=== PATIENT | female | born 1985 | race Caucasian/White ===

== ENCOUNTER 2016-09-26 22:12 | Emergency (ER) | payer OTHER ==
[~2016-09-26] VITALS: Ht 162.6 cm; Wt 70.0 kg
[~2016-09-26 22:12] MED LIST: ALBU1AER INH; IBUP600 PO; MICR1TAB PO; PERI8.6T PO; PRENCAP6 PO
[2016-09-26 22:15] VITALS: BP 134/82; PULSE 75; RESP 16; TEMP 97.9; O2SAT 100
--- NOTE | 2016-09-26 23:26 | PD ---
HPI Chief Complaint: Related Problem Time Seen by Provider: 23:15 Travel History International Travel<30 days: No Contact w/Intl Traveler<30days: No Traveled to known affect area: No History of Present Illness HPI The patient is a 31 year old female who presents to the [facility] emergency department with a history of , 1 miscarriage currently at approximately 10 weeks gestation with chest pain, shortness of breath, dizziness , a sensation of burning through out her body, and chills that began 2 weeks ago. Her cough is intermittently productive of yellow sputum. Her cough is been present for at least the last month. The patient reports that her pain is in the center of chest. The pain is a sharp pain that is worse with pressing the area. Her proair inhaler has helped. She denies having any lower extremity edema, calf pain, or erythema. 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 She has had nausea with vomiting 2-3 x per day. She has had Diarrhea that began one and 1/2 months ago and occurs approximately 3 x per day. She denies having any blood in the stool, black or tarry stools, or mucus in her stool. No recent antibiotic use. She denies having any known sick contacts, however she reports that she works at [employer]. She denies having any vaginal discharge or vaginal bleeding. She reports having urinary frequency without any urinary urgency or dysuria. The patient denies having any known fevers, neck pain, abdominal pain , or neurologic symptoms. LMP: 07/07/2016. [facility] Past Medical History Narrative Medical The patient's past medical history is significant for asthmatic bronchitis, scoliosis. Asthma: Yes Diminished Hearing: No Respiratory: Yes (ASTHMA) ?: : 3 Para: 2 Past Surgical History Narrative Surgical The patient's past surgical history is significant for scoliosis sx at 16 yoa. Social History Alcohol Use: No Tobacco Use: No Substance Use: No Allergies-Medications (Allergen,Severity, Reaction): Coded Allergies: Benadryl (Verified Allergy, Severe, SWELLIG, 09/26/16) Sudafed (Verified Allergy, Severe, SWELLING, 09/26/16) Reported Meds & Prescriptions Reported Meds & Active Scripts Active Proair Hfa 8.5 GM Inh (Albuterol Sulfate) 90 Mcg/Act Aer 2 Puff INH Q4-6H PRN 108 mcg/actuation Keflex (Cephalexin) 500 Mg Cap 500 Mg PO Q8H Zofran Odt (Ondansetron Odt) 4 Mg Tab 4 Mg SL Q6HR PRN Microgestin 1 mg/20 mcg 1 mg/20 mcg Tab 1 Tab PO DAILY Viry-Colace 8.6-50 mg (Sennosides-Docusate Sodium) 1 Tab Tab 2 Tab PO Q12H PRN Motrin 600 Mg Tab (Ibuprofen) 600 Mg Tab 600 Mg PO Q6H PRN 1 ( Multivitamins) Cap 1 Cap PO DAILY Reported Proair Hfa (Albuterol Sulfate) 8.5 Gm Aero 2 Puff INH Q6 * SHAKE WELL BEFORE USE * Narrative Medication [employer] store brand, [facility] vitamins. Review of Systems Except as stated in HPI: all other systems reviewed are Neg General / Constitutional: No: Fever Eyes: No: Visual changes HENT: Positive: Congestion, No: Headaches Cardiovascular: Positive: Chest Pain or Discomfort Respiratory: Positive: Cough, Shortness of Breath Gastrointestinal: Positive: Nausea, Vomiting, Diarrhea, Changes in Bowel Habits , Indigestion, No: Abdominal Pain, Hematemesis, Hematochezia Genitourinary: Positive: Frequency, No: Urgency, Dysuria, Discharge, Vaginal Bleeding Musculoskeletal: Positive: Myalgias, Pain Skin: No Rash Neurologic: No: Weakness, Focal Abnormalities, Change in Mentation, Slurred Speech, Sensory Disturbance Psychiatric: No: Depression Endocrine: No: Polydipsia Hematologic/Lymphatic: No: Easy Bruising Physical Exam Narrative General: The patient is well-developed well-nourished female in no acute distress. Head and Neck exam: Head is normocephalic atraumatic. Eyes: EOMI, pupils are equal round and reactive to light. Nose: Midline septum with pink mucous membranes Mouth: Dentition unremarkable. Moist mucus membranes. Posterior oropharynx is not erythematous. No tonsillar hypertrophy. Uvula midline. Airway patent. Neck: No palpable lymphadenopathy. No nuchal rigidity. No thyromegaly. Cardiovascular: Regular rate and rhythm without murmurs, gallops, or rubs. No pulse deficits to the extremities on simultaneous auscultation and palpation of her radial artery. The patient has chest wall tenderness on palpation along the left upper sternal border with her second and third rib. There is no erythema or ecchymosis. No step-off or crepitus. No flail segment. Lungs: Clear to auscultation bilaterally. No wheezes, rhonchi, or rales. The patient has a frequent dry sounding cough. Abdomen: Soft, without tenderness to palpation in all 4 quadrants of the abdomen. No guarding, rebound, or rigidity. Normal bowel sounds are audible. No tenderness on palpation of McBurney's point. Negative Navas's sign. Extremities: No clubbing, cyanosis, or edema. 2+ pulses in all 4 extremities. Back: No spinous process tenderness to palpation. Bilateral CVA tenderness reported on palpation. She reports that she does have a problem with chronic back pain related to her scoliosis. Neurologic Exam: Cranial nerves 2-12 were intact on exam. Strength is 5/5 in all 4 extremities. No sensory deficits noted. No dysdiadochokinesis. Good finger to nose and Heel to hector bilaterally. Skin Exam: No rash noted. Intact skin that is warm and dry. Data Data Last Documented VS Vital Signs Date Time Temp Pulse Resp B/P Pulse Ox O2 Delivery O2 Flow Rate FiO2 09/27/16 02:01 98.3 70 18 105/63 98 09/26/16 22:15 Room Air Orders Electrocardiogram (09/26/16 23:22) Complete Blood Count With Diff (09/26/16 23:22) Comprehensive Metabolic Panel (09/26/16 23:22) Creatine Kinase (Cpk) (09/26/16 23:22) Ckmb (Isoenzyme) Profile (09/26/16 23:22) Troponin I (09/26/16 23:22) B-Type Natriuretic Peptide (09/26/16 23:22) Prothrombin Time / Inr (Pt) (09/26/16 23:22) Act Partial Throm Time (Ptt) (09/26/16 23:22) Lipase (09/26/16 23:22) Urinalysis - C+S If Indicated (09/26/16 23:22) Beta Hcg (Quant/Titer) (09/26/16 23:22) Magnesium (Mg) (09/26/16 23:22) Thyroid Stimulating Hormone (09/26/16 23:22) Iv Access Insert/Monitor (09/26/16 23:22) Ecg Monitoring (09/26/16 23:22) Oximetry (09/26/16 23:22) Sodium Chlor 0.9% 1000 Ml Inj (Ns 1000 M (09/26/16 23:45) Ondansetron Inj (Zofran Inj) (09/27/16 00:45) Acetaminophen (Tylenol) (09/27/16 00:45) Ed Poc Ultrasound (09/27/16 00:45) Labs Laboratory Tests Test 09/26/16 09/26/16 23:30 23:35 Urine Color YELLOW Urine Turbidity HAZY Urine pH 7.0 Urine Specific [place] 1.007 Urine Protein NEG mg/dL Urine Glucose (UA) NEG mg/dL Urine Ketones NEG mg/dL Urine Occult Blood NEG Urine Nitrite NEG Urine Bilirubin NEG Urine Urobilinogen LESS THAN 2.0 MG/DL Urine Leukocyte Esterase NEG Urine RBC 1 /hpf Urine WBC 1 /hpf Urine Squamous Epithelial 6 /hpf Cells Urine Bacteria RARE /hpf Microscopic Urinalysis Comment CULT NOT INDICATED White Blood Count 8.3 TH/MM3 Red Blood Count 4.47 MIL/MM3 Hemoglobin 12.4 GM/DL Hematocrit 35.9 % Mean Corpuscular Volume 80.5 FL Mean Corpuscular Hemoglobin 27.9 PG Mean Corpuscular Hemoglobin 34.6 % Concent Red Cell Distribution Width 13.5 % Platelet Count 242 TH/MM3 Mean Platelet Volume 8.5 FL Neutrophils (%) (Auto) 61.5 % Lymphocytes (%) (Auto) 27.2 % Monocytes (%) (Auto) 6.2 % Eosinophils (%) (Auto) 4.5 % Basophils (%) (Auto) 0.6 % Neutrophils # (Auto) 5.1 TH/MM3 Lymphocytes # (Auto) 2.2 TH/MM3 Monocytes # (Auto) 0.5 TH/MM3 Eosinophils # (Auto) 0.4 TH/MM3 Basophils # (Auto) 0.0 TH/MM3 CBC Comment DIFF FINAL Differential Comment Prothrombin Time 10.3 SEC Prothromb Time International 0.9 RATIO Ratio Activated Partial 26.8 SEC Thromboplast Time Sodium Level 136 MEQ/L Potassium Level 3.6 MEQ/L Chloride Level 103 MEQ/L Carbon Dioxide Level 27.3 MEQ/L Anion Gap 6 MEQ/L Blood Urea Nitrogen 8 MG/DL Creatinine 0.53 MG/DL Estimat Glomerular Filtration 136 ML/MIN Rate Random Glucose 91 MG/DL Calcium Level 9.2 MG/DL Magnesium Level 2.0 MG/DL Total Bilirubin 0.2 MG/DL Aspartate Amino Transf 13 U/L (AST/SGOT) Alanine Aminotransferase 19 U/L (ALT/SGPT) Alkaline Phosphatase 39 U/L Total Creatine Kinase 49 U/L Troponin I LESS THAN 0.02 NG/ML B-Type Natriuretic Peptide 15 PG/ML Total Protein 7.2 GM/DL Albumin 3.2 GM/DL Lipase 159 U/L Thyroid Stimulating Hormone 1.280 uIU/ML 3rd Gen Human Chorionic Gonadotropin, 53765 MIU/ML Quant MDM Medical Decision Making Medical Screen Exam Complete: Yes Emergency Medical Condition: Yes Medical Record Reviewed: Yes Differential Diagnosis Viral syndrome, versus pneumonia, versus acute coronary syndrome, versus pulmonary embolism Narrative Course During the course of the patients emergency department visit, the patients history, examination, and differential diagnosis were reviewed with the patient. The patient had IV access obtained and blood work sent for analysis. 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 The patient's breath sounds were equal bilaterally, therefore a chest x-ray was not ordered due to the radiation risk. The patient's risk factors for PE were also reviewed and this also appeared to be unlikely. The patient was initially provided normal saline a 1 L IV fluid bolus, acetaminophen 650 by mouth 1, Zofran 4 mg IV for nausea. The patients laboratory studies were reviewed and remarkable for white count of 8.3, hemoglobin 12.4, platelets 242, neutrophils 61.5, leukocytes 27.2, monocytes 6.2, CMP is remarkable for an AST of 13, alkaline phosphatase 39, CPK 49, troponin I less than 0.02, BNP 15 albumin 3.2, lipase 159, TSH 1.28, monitor data beta hCG 70,015, PT PTT within normal limits, urinalysis unremarkable. The patient is not tachycardic. The patient's O2 saturation is 99-100% on room air. Other than being , the patient has no other risk factors for pulmonary embolism. The patient's symptoms appear to be related to chest wall pain, asthma, and bronchitis. The patient will be discharged home with a perception for Keflex, Zofran for nausea in , and a refill of her pro-air inhaler. She has a follow-up appointment or to schedule with her family practice doctor regarding her scheduled on Tuesday. The patient is resting comfortably and feels better, is alert and in no distress. The patients results and examination findings were discussed with the patient. The repeat examination is unremarkable and benign. The history, exam, diagnostic testing, and current condition do not suggest any significant pathology to warrant further testing, continued ED treatment, admission, or surgical evaluation at this point. The vital signs have been stable. The patient does not have uncontrollable pain, intractable vomiting, or other significant symptoms. The patient's condition is stable and appropriate for discharge. The patient will pursue further outpatient evaluation with a primary care physician or other designated or consulting physician as indicated in the discharge instructions. The patient expressed understanding and was agreeable with this plan. Procedures Procedure Narrative Emergency Department Pelvic ultrasound was performed with patient consent. The curvilinear probe was used in the transverse and sagittal views within the suprapubic region revealing single intrauterine . heart rate was 168. Active fetus noted on examination. Diagnosis Primary Impression: Bronchitis Additional Impressions: Asthma exacerbation Qualified Code: Z3A.10 - 10 weeks gestation of Referrals: Primary Care Physician Patient Instructions: Acute Bronchitis (ED), Asthma (ED), General Instructions , Nausea and Vomiting in (ED) Med/Other Pt SpecificInfo: Prescription(s) given Scripts Albuterol 8.5 GM Inh (Proair Hfa 8.5 GM Inh)90 Mcg/Act Aer2 Puff INH Q4-6H PRN ( SHORTNESS OF BREATH) #1 INHALER Ref 0 108 mcg/actuation Prov:Starla Granado MD 09/27/16 Cephalexin (Keflex)500 Mg Yly418 Mg PO Q8H #30 CAP Ref 0 Prov:Starla Granado MD 09/27/16 Ondansetron Odt (Zofran Odt)4 Mg Tab4 Mg SL Q6HR PRN (Nausea/Vomiting) #7 TAB Ref 0 Prov:Starla Granado MD 09/27/16 Disposition: 01 DISCHARGE HOME Condition: Stable Starla Granado MD Sep 26, 2016 23:26
[2016-09-26] MEDS ORDERED: SODIUM CHLOR 0.9% 1000 ML INJ 1,000 ML IV ONE (23:45)
[2016-09-26 23:51] VITALS: BP 112/70; PULSE 78; RESP 20; O2SAT 99
[2016-09-26 23:55] LABS: AUTOMATED NEUTROPHIL # 5.1 TH/MM3 (1.8-7.7); BASOPHIL % 0.6 % (0.0-2.0); EOSINOPHIL # 0.4 TH/MM3 (0-0.4); EOSINOPHIL % 4.5 % (0.0-4.0); HEMATOCRIT 35.9 % (35.0-46.0); HEMO FLAGS DIFF FINAL; LYMPH % 27.2 % (9.0-44.0); LYMPHOCYTE # 2.2 TH/MM3 (1.0-4.8); MEAN CELL VOLUME 80.5 FL (80.0-100.0); MEAN CORPUSCULAR HEMOGLOBIN 27.9 PG (27.0-34.0); MEAN CORPUSCULAR HGB CONC 34.6 % (32.0-36.0); MONO % 6.2 % (0.0-8.0); NEUT % 61.5 % (16.0-70.0); PLATELET COUNT 242 TH/MM3 (150-450); RED BLOOD COUNT 4.47 MIL/MM3 (4.00-5.30); RED CELL DISTRIBUTION WIDTH 13.5 % (11.6-17.2); WHITE BLOOD COUNT 8.3 TH/MM3 (4.0-11.0)
[2016-09-26 23:55] LABS: BACTERIA, URINE RARE /hpf; BLOOD, URINE NEG (NEG); COMMENT (UR) CULT NOT INDICATED; CULTURE IF INDICATED CULT NOT INDICATED; GLUCOSE,URINE NEG (NEG); KETONE, URINE NEG (NEG); NITRITE,URINE NEG (NEG); SQUAMOUS EPITHELIAL CELL URINE 6 /hpf (0-5); URINE COLOR YELLOW (YELLW/STRAW)
[2016-09-27 00:08] LABS: ANION GAP 6 MEQ/L (5-15); AST (GOT) 13 U/L (15-37); BICARBONATE 27.3 MEQ/L (21.0-32.0); BLOOD UREA NITROGEN 8 MG/DL (7-18); CHLORIDE 103 MEQ/L (98-107); GLOMERULAR FILTRATION RATE 136 ML/MIN (>89); POTASSIUM 3.6 MEQ/L (3.5-5.1); SODIUM (NA) 136 MEQ/L (136-145)
[2016-09-27 00:09] LABS: ALT (GPT) 19 U/L (10-53)
[2016-09-27 00:17] LABS: APTT (PATIENT) 26.8 SEC (24.3-30.1); INTERNATIONAL NORMALIZED RATIO 0.9 RATIO; PROTHROMBIN TIME - PATIENT 10.3 SEC (9.8-11.6)
[2016-09-27 00:26] LABS: ALKALINE PHOSPHATASE 39 U/L (45-117); BETA HCG QUANT 70015 MIU/ML (0-5); TOTAL BILIRUBIN ADULT 0.2 MG/DL (0.2-1.0)
[2016-09-27 00:28] LABS: CREATINE KINASE 49 U/L (26-192)
[2016-09-27] MEDS ORDERED: ONDANSETRON HCL 4 MG/2 ML VIAL IV ONE (00:45)
[2016-09-27] MEDS ORDERED: ACETAMINOPHEN 325 MG TAB PO ONE (00:45)
[2016-09-27] MEDS ORDERED: ALBUAER3 INH (00:47)
[2016-09-27] MEDS ORDERED: ZOFR4TAB3 SL (00:47)
[2016-09-27] MEDS ORDERED: CEPH-460 PO (00:47)
[2016-09-27 02:01] VITALS: BP 105/63; TEMP 98.3
--- NOTE | 2016-09-28 07:46 | EKG ---
Date Performed: 09/27/2016 Time Performed: 00:00:36 PTAGE: 31 years EKG: Sinus rhythm NORMAL ECG NO PREVIOUS TRACING DOCTOR: Jay Hill Interpretating Date/Time 09/28/2016 07:43:44
== END 2016-09-27 02:03 | disposition home or self-care (01) ==
LOC: NEPC 22:12
DX: O99.89 Other specified diseases and conditions complicating pregnancy, childbirth and the puerperium (principal); J40 Bronchitis, not specified as acute or chronic; J45.901 Unspecified asthma with (acute) exacerbation; R07.89 Other chest pain; O21.9 Vomiting of pregnancy, unspecified; R42 Dizziness and giddiness; R19.7 Diarrhea, unspecified; R35.0 Frequency of micturition; R06.02 Shortness of breath; Z87.09 Personal history of other diseases of the respiratory system; Z3A.10 10 weeks gestation of pregnancy
CPT/HCPCS: 80053; 81001; 82550; 83690; 83735; 83880; 84443; 84484; 84702; 85025; 85610; 85730; 93005; 96374; 99284; J2405; J7030

== ENCOUNTER → 2016-11-29 | Outpatient (CLI) | payer OTHER ==
[~2016-11-29] MED LIST changes: -ALBU1AER INH; +ALBUAER3 INH; +AMOX500T2 PO; -IBUP600 PO; -MICR1TAB PO; -PERI8.6T PO; +PREN29TA PO; -PRENCAP6 PO
== END ==
LOC: HPND 09:58
PROVIDERS: ATTEND Family Medicine
DX: O26.842 Uterine size-date discrepancy, second trimester (principal)
CPT/HCPCS: 76805

== ENCOUNTER 2017-02-13 16:47 | Emergency (ER) | payer OTHER ==
[~2017-02-13 16:47] MED LIST changes: -AMOX500T2 PO
--- NOTE | 2017-02-13 17:45 | PD ---
HPI Chief Complaint Lost mucus plug, pelvic pressure Date Seen: Feb 13, 2017 Time Seen: 17:43 (Brigido Bear MD R2) Chief Complaint Pressure Date Seen: Feb 13, 2017 Time Seen: 17:00 (Arthur Avila MD) Travel History International Travel<30 Days: No Contact w/Intl Traveler<30Days: No (Brigido Bear MD R2) International Travel<30 Days: No Contact w/Intl Traveler<30Days: No Known Affected Area: No (Arthur Avila MD) History of Present Illness HPI 31-year-old 5 para 3 who comes for concerns of pelvic pressure. She denies leakage of fluid, bleeding or vaginal discharge. (Arthur Avila MD) Allergies-Medications (Allergen,Severity, Reaction): Coded Allergies: diphenhydramine (Unverified Allergy, Severe, SWELLIG, 02/13/17) pseudoephedrine (Unverified Allergy, Severe, SWELLING, 02/13/17) Home Meds Active Scripts Albuterol 8.5 GM Inh (Proair Hfa 8.5 GM Inh) 90 Mcg/Act Aer, 2 PUFF INH Q4-6H Y for SHORTNESS OF BREATH, #1 INHALER 0 Refills 108 mcg/actuation Prov:Starla Granado MD 09/27/16 Reported Medications Vit-Iron Carbonyl ( Plus Iron 29-1 mg) 1 Tab Tab, 1 TAB PO DAILY for Nutritional Supplement, #30 TAB 0 Refills 11/09/16 Review of Systems Except as stated in HPI: all other systems reviewed are Neg (Arthur Avila MD) Physical Exam Narrative GENERAL: Well-nourished, well-developed patient. SKIN: Warm and dry. HEAD: Normocephalic and atraumatic. EYES: No scleral icterus. No injection or drainage. ENT: No nasal drainage noted. Mucous membranes pink. Airway patent. NECK: Supple, trachea midline. No JVD. CARDIOVASCULAR: Regular rate and rhythm without murmurs, gallops, or rubs. RESPIRATORY: Breath sounds equal bilaterally. No accessory muscle use. BREASTS: Bilateral exam showed no masses , no retractions, no nipple discharge. ABDOMEN/GI: Abdomen soft, non-tender, bowel sounds present, no rebound, no guarding Gravid to [-] weeks size Fundal Height: [-] GENITOURINARY: External Genitalia: intact and normal in appearance BUS glands: [-] Cervix: [-] Dilatation: [-] Effacement: [-] Station: [-] Presentation: [-] Membranes: [intact or ruptured] Uterine Contractions: [-] FHT's: Category: [-] Baseline: [-] Reactive: [-] Variability: [-] Decels: [-] EXTREMITIES: No cyanosis or edema. BACK: Nontender without obvious deformity. No CVA tenderness. NEUROLOGICAL: Awake and alert. Motor and sensory grossly within normal limits. Five out of 5 muscle strength in all muscle groups. Normal speech. (Brigido Bear MD R2) Exam Limitations: Other: Narrative Cervix is closed long with no presenting part in the pelvis (Arthur Avila MD) Data Data Orders Orders Vital Signs (Adult) .ON ADMISSION (02/13/17 17:41) ^ Labor Status (02/13/17 17:41) ^ Non Stress Test (02/13/17 17:41) ^ Hydration (02/13/17 17:41) (Brigido Bear MD R2) Vital Signs Reviewed: Yes (Arthur Avila MD) MDM Medical Record Reviewed: Yes (Brigido Bear MD R2) Medical Record Reviewed: Yes (Arthur Avila MD) Diagnosis Diagnosis: Primary Impression: Round ligament pain Ruled Out: labor Disposition: 01 DISCHARGE HOME Condition: Good Attestation Patient seen and evaluated with resident under direct supervision, agree with assessment and plan. (Arthur Avila MD) Brigido Bear MD R2 Feb 13, 2017 17:45 Arthur Avila MD Feb 13, 2017 18:05
--- NOTE | 2017-02-13 18:36 | PD ---
HPI Chief Complaint Lost mucus plug, pelvic pressure Date Seen: Feb 13, 2017 Time Seen: 17:43 (Brigido Bear MD R2) Travel History International Travel<30 Days: No Contact w/Intl Traveler<30Days: No Known Affected Area: No (Brigido Bear MD R2) History of Present Illness HPI 31 yo at 31/3 weeks gestation presenting with pelvic pain/pressure since 1330 as well as having lost her mucus plug around the same time. Denies vaginal bleeding, leakage of fluid, contractions. Pain is localized to the lower pelvis and lower back and is described as constant pressure which does not fluctuate in severity. Denies dysuria, fevers, chills, chest pain, shortness of breath. She has no history of delivery of premature rupture of membranes. (Brigido Bear MD R2) History Past Medical History Medical History: Denies Significant Hx (Brigido Bear MD R2) Obstetric History Obstetric History All deliveries vaginal at term, no complications (Brigido Bear MD R2) Past Surgical History Narrative Surgical Scoliosis surgery 2001 (Brigido Bear MD R2) Family History Family History: Negative (Brigido Bear MD R2) Social History Alcohol Use: No Tobacco Use: No Substance Abuse: No (Brigido Bear MD R2) Allergies-Medications (Allergen,Severity, Reaction): Coded Allergies: diphenhydramine (Unverified Allergy, Severe, SWELLIG, 02/13/17) pseudoephedrine (Unverified Allergy, Severe, SWELLING, 02/13/17) Home Meds Active Scripts Albuterol 8.5 GM Inh (Proair Hfa 8.5 GM Inh) 90 Mcg/Act Aer, 2 PUFF INH Q4-6H Y for SHORTNESS OF BREATH, #1 INHALER 0 Refills 108 mcg/actuation Prov:Starla Granado MD 09/27/16 Reported Medications Vit-Iron Carbonyl ( Plus Iron 29-1 mg) 1 Tab Tab, 1 TAB PO DAILY for Nutritional Supplement, #30 TAB 0 Refills 11/09/16 Review of Systems Except as stated in HPI: all other systems reviewed are Neg (Brigido Bear MD R2) Physical Exam Narrative GENERAL: Well-nourished, well-developed patient. SKIN: Warm and dry. HEAD: Normocephalic and atraumatic. EYES: No scleral icterus. No injection or drainage. ENT: No nasal drainage noted. Mucous membranes pink. Airway patent. CARDIOVASCULAR: Regular rate and rhythm without murmurs, gallops, or rubs. RESPIRATORY: Breath sounds equal bilaterally. No accessory muscle use. ABDOMEN/GI: Abdomen soft, non-tender, no rebound, no guarding GENITOURINARY: Cervix: posterior Dilation: closed Effacement: thick Presentation: high Contractions: none FHT's: Category: 1 Baseline: 130 Reactive: Y Variability: moderate Decels: N EXTREMITIES: No cyanosis or edema. NEUROLOGICAL: Awake and alert. Motor and sensory grossly within normal limits. Normal speech. (Brigido Bear MD R2) Data Data Vital Signs Reviewed: Yes Orders Orders Vital Signs (Adult) .ON ADMISSION (02/13/17 17:41) ^ Labor Status (02/13/17 17:41) ^ Non Stress Test (02/13/17 17:41) ^ Hydration (02/13/17 17:41) Ed Discharge Order (02/13/17 17:45) (Brigido Bear MD R2) MDM Medical Record Reviewed: Yes Narrative Course / MDM 31-year-old at 31/3 weeks gestation presenting with pelvic pressure #1 IUP Category 1 tracing, reassuring #2 pelvic pressure heart tones reassuring, no signs or symptoms of UTI, labor ruled out by cervical exam and monitoring - Likely etiology round ligament pain - Return to ER if other symptoms develop or if pain worsens - Construction Engineer on early labor signs - Routine f/u with Dr. Kayce Avila (Brigido Bear MD R2) Attending Attestation Patient seen and evaluated with resident under direct supervision, agree with assessment and plan. (Arthur Avila MD) Diagnosis Diagnosis: Primary Impression: Round ligament pain Ruled Out: labor Disposition: 01 DISCHARGE HOME Condition: Good Patient Instructions: General Instructions, Labor (ED) Departure Forms: Tests/Procedures Brigido Bear MD R2 Feb 13, 2017 18:36 Arthur Avila MD Feb 13, 2017 19:39
== END 2017-02-13 18:04 | disposition home or self-care (01) ==
LOC: HOBED 16:47
DX: O26.893 Other specified pregnancy related conditions, third trimester (principal); R10.2 Pelvic and perineal pain; Z3A.31 31 weeks gestation of pregnancy
CPT/HCPCS: 99283

== ENCOUNTER 2017-04-05 11:58 | Emergency (ER) | payer OTHER ==
[~2017-04-05] VITALS: Ht 170.2 cm; Wt 71.2 kg
[~2017-04-05 11:58] MED LIST changes: +ONDA4TAB7 SL; +RANI150T PO
--- NOTE | 2017-04-05 12:48 | PD ---
HPI Travel History International Travel<30 Days: No Contact w/Intl Traveler<30Days: No Known Affected Area: No (Michelle Thomas MD R2) History of Present Illness HPI Patient is a 31 year old at 38 and 5/7 weeks gestation, OB care with Dr. Devries, RODRIGUEZ 04/14/2017, who presents to the OB ED with possible leakage of fluid at 9pm yesterday. No gush of fluid. No dysuria or urinary frequency. She denies vaginal bleeding. + [place] contractions. She feels baby moving regularly. She denies PANIAGUA/N/V/D/fever/sick contacts/SOB/calf pain/dizziness/ seeing spots. Last sexual activity 6-7 days ago. GBS positive. Rh negative, received Rhogam this . (Michelle Thomas MD R2) History Past Medical History Narrative Medical Asthma - mild intermittent based on reported symptoms, last albuterol use 2 weeks ago (Michelle Thomas MD R2) Obstetric History Obstetric History One miscarriage at 7 weeks Three normal vaginal deliveries (Michelle Thomas MD R2) Past Surgical History Narrative Surgical Scoliosis surgery (rods) (Michelle Thomas MD R2) Family History Narrative Family History None reported (Michelle Thomas MD R2) Social History Alcohol Use: No Tobacco Use: No Substance Abuse: No (Michelle Thomas MD R2) Allergies-Medications (Allergen,Severity, Reaction): Coded Allergies: diphenhydramine (Unverified Allergy, Severe, SWELLIG, 03/29/17) pseudoephedrine (Unverified Allergy, Severe, SWELLING, 03/29/17) Home Meds Active Scripts Ranitidine (Ranitidine) 150 Mg Tab, 150 MG PO BID for Heartburn Management, #60 TAB 1 Refill Prov:Rupal Devries MD, R3 03/01/17 Albuterol 8.5 GM Inh (Proair Hfa 8.5 GM Inh) 90 Mcg/Act Aer, 2 PUFF INH Q4-6H Y for SHORTNESS OF BREATH, #1 INHALER 0 Refills 108 mcg/actuation Prov:Rupal Devries MD, R3 03/01/17 Reported Medications Vit-Iron Carbonyl ( Plus Iron 29-1 mg) 1 Tab Tab, 1 TAB PO DAILY for Nutritional Supplement, #30 TAB 0 Refills 11/09/16 Discontinued Scripts Ondansetron Odt (Ondansetron Odt) 4 Mg Tab, 4 MG SL Q8HR Y for Nausea/Vomiting, #20 TAB 0 Refills Prov:Rupal Devries MD, R3 03/15/17 Amoxicillin (Amoxicillin) 500 Mg Cap, 500 MG PO BID for Infection, #14 CAP 0 Refills Prov:Rupal Devries MD, R3 03/22/17 Review of Systems Except as stated in HPI: all other systems reviewed are Neg (Michelle Thomas MD R2) Physical Exam Narrative GENERAL: Well-nourished, well-developed female in no apparent distress. SKIN: Warm and dry. No rashes or ecchymoses. NECK: Supple, trachea midline. No JVD. ABDOMEN/GI: Abdomen gravid, nontender to palpation. GENITOURINARY: External Genitalia: intact and normal in appearance Cervix: 0/0/-2 Membranes: intact Uterine Contractions: intermittent FHT's: Category: 1 Baseline: 120s Reactive: 150s Variability: mod Decels: absent EXTREMITIES: No cyanosis or edema. (Michelle Thomas MD R2) Data Data Vital Signs Reviewed: Yes (wnl) Group B Strep: Positive (per labs outpt) (Michelle Thomas MD R2) MDM Medical Record Reviewed: Yes Narrative Course / MDM 31 year old at 38 and 5/7 weeks gestation, OB care with Dr. Devries who presents with possible rupture of membranes -Amnisure negative -Cervix closed -CTX intermittent -Cat 1 tracing Discharge home with labor precautions. Advised to keep next appointment with Dr. Devries. Cautioned to return for any signs of labor urgently give multiparous status. Patient expressed understanding of plan of care. Dr. Devries notified. Dr. Avila OB Hospitalist access control officer evaluated patient and agrees with plan of care. (Michelle Thomas MD R2) Attending Attestation Patient seen and evaluated with resident under direct supervision, agree with assessment and plan. (Arthur Avila MD) Diagnosis Diagnosis: Primary Impression: Round ligament pain Additional Impression: with 38 completed weeks gestation Disposition: 01 DISCHARGE HOME Condition: Stable Patient Instructions: Abdominal Pain in (ED), Having Your Baby: The Labor Process (GEN) Michelle Thomas MD R2 Apr 05, 2017 12:48 Arthur Avila MD Apr 05, 2017 17:11
== END 2017-04-05 13:23 | disposition home or self-care (01) ==
LOC: HOBED 11:58
DX: O26.893 Other specified pregnancy related conditions, third trimester (principal); R10.2 Pelvic and perineal pain; Z3A.38 38 weeks gestation of pregnancy
CPT/HCPCS: 59025; 84112

== ENCOUNTER 2017-04-17 02:49 | Emergency (ER) | payer OTHER ==
[~2017-04-17 02:49] MED LIST changes: -ONDA4TAB7 SL
--- NOTE | 2017-04-17 03:32 | PD ---
HPI Chief Complaint Abdominal pain Date Seen: Apr 17, 2017 Travel History International Travel<30 Days: No Contact w/Intl Traveler<30Days: No Known Affected Area: No History of Present Illness HPI Patient is a 31 year old at 40 and 3/7 weeks gestation, OB care with Dr. Devries, RODRIGUEZ 04/14/2017, who presents to the OB ED with sharp abdominal pain in her pelvis with movement. No gush of fluid. No dysuria or urinary frequency. She denies vaginal bleeding. Occasional contraction q30 mins. She feels baby moving regularly. She also denies nausea, vomiting, fever, chills, abnormal vaginal discharge, spots in her vision, pedal edema, RUQ pain, but has had headache and back pain. GBS positive. Rh negative, received Rhogam this Weeks Gestation: 40 Para: 3 : 5 History Past Medical History Narrative Medical Asthma - mild intermittent based on reported symptoms, albuterol prn Obstetric History Obstetric History One miscarriage at 7 weeks Three normal vaginal deliveries Past Surgical History Narrative Surgical Scoliosis surgery (rods) Family History Narrative Family History None reported Social History Narrative Social History Alcohol Use: No Tobacco Use: No Substance Abuse: No Allergies-Medications (Allergen,Severity, Reaction): Coded Allergies: diphenhydramine (Unverified Allergy, Severe, SWELLIG, 03/29/17) pseudoephedrine (Unverified Allergy, Severe, SWELLING, 03/29/17) Home Meds Active Scripts Ranitidine (Ranitidine) 150 Mg Tab, 150 MG PO BID for Heartburn Management, #60 TAB 1 Refill Prov:Rupal Devries MD, R3 03/01/17 Albuterol 8.5 GM Inh (Proair Hfa 8.5 GM Inh) 90 Mcg/Act Aer, 2 PUFF INH Q4-6H Y for SHORTNESS OF BREATH, #1 INHALER 0 Refills 108 mcg/actuation Prov:Rupal Devries MD, R3 03/01/17 Reported Medications Vit-Iron Carbonyl ( Plus Iron 29-1 mg) 1 Tab Tab, 1 TAB PO DAILY for Nutritional Supplement, #30 TAB 0 Refills 11/09/16 Review of Systems Except as stated in HPI: all other systems reviewed are Neg Physical Exam Narrative GENERAL: Well-nourished, well-developed female in no apparent distress. SKIN: Warm and dry. No rashes or ecchymoses. NECK: Supple, trachea midline. No JVD. ABDOMEN/GI: Abdomen gravid, nontender to palpation. GENITOURINARY: External Genitalia: intact and normal in appearance Cervix: 2/0/-3 Membranes: intact Uterine Contractions: rare FHT's: Category: I-Ii Baseline: 150s Reactive: multiple accels Variability: mod Decels: 2 variables EXTREMITIES: No cyanosis or edema Data Data Vital Signs Reviewed: Yes Group B Strep: Positive MDM Medical Record Reviewed: Yes Interpretation(s) 31 year old at 40 and 3/7 weeks gestation, OB care with Dr. Devries who presents with false labor -Cervix closed -CTX intermittent -Cat I-II tracing - 2 variable decels associated with contractions Plan Discharge home with labor precautions. Advised to keep next appointment at the [facility] clinic on Tuesday Cautioned to return for any signs of labor urgently given multiparous status She may need a BPP within the week Further management per Dr. Devries Patient expressed understanding of plan of care Discussed with Dr. Plaza who agrees to the plan of care Diagnosis Diagnosis: Primary Impression: False labor after 37 weeks of gestation without delivery Disposition: 01 DISCHARGE HOME Condition: Stable Patient Instructions: Abdominal Pain in (ED), Early Labor Signs (ED) EkoKeya MD R2 Apr 17, 2017 03:32
== END 2017-04-17 04:49 | disposition home or self-care (01) ==
LOC: HOBED 02:49
DX: O47.1 False labor at or after 37 completed weeks of gestation (principal); J45.909 Unspecified asthma, uncomplicated; Z3A.40 40 weeks gestation of pregnancy; Z79.899 Other long term (current) drug therapy; Z88.8 Allergy status to other drugs, medicaments and biological substances
CPT/HCPCS: 59025

== ENCOUNTER 2017-04-18 21:41 | Inpatient (IN) | payer OTHER ==
[~2017-04-18] VITALS: Ht 152.4 cm; Wt 73.0 kg
[2017-04-18] MEDS ORDERED: LACTATED RINGER'S 1000 ML INJ 1,000 ML IV SCH (22:21)
[2017-04-18] MEDS ORDERED: LACTATED RINGER'S 1000 ML INJ 1,000 ML IV PRN (22:21)
[2017-04-18] MEDS ORDERED: LIDOCAINE HCL 1% 50 ML VIAL INFIL PRN (22:30)
[2017-04-18] MEDS ORDERED: OXYTOCIN 30 UNITS-500ML PREMIX 500 ML IV ONE (22:30)
[2017-04-18] MEDS ORDERED: LIDOCAINE HCL 1% 50 ML VIAL I-DERMAL PRN (22:30)
[2017-04-18] MEDS ORDERED: SODIUM CHLORID 0.9% 500 ML INJ 500 ML IV PRN (22:30)
[2017-04-18] MEDS ORDERED: CITRIC ACID-SODIUM CITRATE LIQ 30 ML UDC PO SCH (22:30)
[2017-04-18] MEDS ORDERED: MINERAL OIL 10 ML VIAL TOPICAL PRN (22:30)
[2017-04-18] MEDS ORDERED: SODIUM CHLOR 0.9% 1000 ML INJ 1,000 ML IV PRN (22:41)
[2017-04-18] MEDS ORDERED: PENICILLIN G POTASSIUM INJ 5,000,000 UNITS in SODIUM CHLORIDE 0.9% INJ 100 ML IV ONE (23:00)
[2017-04-18] MEDS ORDERED: OXYTOCIN 30 UNITS-500ML PREMIX 500 ML IV PRN (23:00)
--- NOTE | 2017-04-18 23:06 | HHI.HP ---
HPI Chief Complaint SROM Date Seen: Apr 18, 2017 Time Seen: 22:30 Travel History International Travel<30 Days: No Contact w/Intl Traveler<30Days: No Known Affected Area: No History of Present Illness HPI Ms. Peng is a 31-year-old at 40 weeks and 4 days presenting to the OB ED for SROM. Patient states that at approximately 9:15 p.m. on the day of admission she had a gush of clear fluid. States that she has continued to leak clear fluid since that time. She reports contractions roughly every 10 minutes, continues to feel baby move with no changes. She denies any complications during this , but is GBS positive. She reports 3 prior vaginal deliveries at term and one miscarriage. Of note, she reports that she had the flu in mid March. This was not confirmed a test but she had a known sick contact who was diagnosed with the flu. History Past Medical History Narrative Medical History of asthma, uses pro-air sporadically Scoliosis Obstetric History Obstetric History , 3 vaginal deliveries and 1 miscarriage No complications during this Past Surgical History Narrative Surgical Spinal surgery with 2 rods placed for scoliosis Family History Narrative Family History HTN, [place] in father Social History Narrative Social History Lives at home with , 3 kids and a dog. Denies alcohol, tobacco, drug use. Also denies smoke exposure Allergies-Medications (Allergen,Severity, Reaction): Coded Allergies: diphenhydramine (Unverified Allergy, Severe, SWELLIG, 03/29/17) pseudoephedrine (Unverified Allergy, Severe, SWELLING, 03/29/17) Home Meds Active Scripts Ranitidine (Ranitidine) 150 Mg Tab, 150 MG PO BID for Heartburn Management, #60 TAB 1 Refill Prov:Rupal Devries MD, R3 03/01/17 Albuterol 8.5 GM Inh (Proair Hfa 8.5 GM Inh) 90 Mcg/Act Aer, 2 PUFF INH Q4-6H Y for SHORTNESS OF BREATH, #1 INHALER 0 Refills 108 mcg/actuation Prov:Rupal Devries MD, R3 03/01/17 Reported Medications Vit-Iron Carbonyl ( Plus Iron 29-1 mg) 1 Tab Tab, 1 TAB PO DAILY for Nutritional Supplement, #30 TAB 0 Refills 11/09/16 Review of Systems Except as stated in HPI: all other systems reviewed are Neg Physical Exam Narrative GENERAL: Well-nourished, well-developed patient. SKIN: Warm and dry. HEAD: Normocephalic and atraumatic. EYES: No scleral icterus. No injection or drainage. ENT: No nasal drainage noted. Mucous membranes pink. Airway patent. NECK: Supple, trachea midline. No JVD. CARDIOVASCULAR: Regular rate and rhythm without murmurs, gallops, or rubs. RESPIRATORY: Breath sounds equal bilaterally. No accessory muscle use. ABDOMEN/GI: Abdomen soft, non-tender, bowel sounds present, no rebound, no guarding Gravid to 40 weeks size GENITOURINARY: External Genitalia: intact and normal in appearance Cervix: Posterior Dilatation: 3 Effacement: 70 Station: -2 Presentation: Vertex Membranes: Ruptured Uterine Contractions: Every 7 minutes FHT's: Category: 1 Baseline: 130 Reactive: Yes Variability: Moderate Decels: No recurring decelerations EXTREMITIES: No cyanosis or edema. BACK: Nontender without obvious deformity. No CVA tenderness. NEUROLOGICAL: Awake and alert. Motor and sensory grossly within normal limits. Five out of 5 muscle strength in all muscle groups. Normal speech. Caprini VTE Risk Assessment Caprini VTE Risk Assessment: No/Low Risk (score <= 1) Data Data Orders Orders Admit To Inpatient (04/18/17 ) Vital Signs (Adult) .Per protocol (04/18/17 22:21) Heart (04/18/17 22:21) Amnioinfusion (04/18/17 22:21) Urinary Catheter Management .ONCE (04/18/17 22:21) Diet Liquid (04/19/17 Breakfast) Lactated Ringer's 1000 Ml Inj (Lr 1000 M (04/18/17 22:21) Lactated Ringer's 1000 Ml Inj (Lr 1000 M (04/18/17 22:21) Sodium Chlorid 0.9% 500 Ml Inj (Ns 500 M (04/18/17 22:30) Sodium Chlor 0.9% 1000 Ml Inj (Ns 1000 M (04/18/17 22:41) Lidocaine 1% Inj (50 Ml) (Xylocaine 1% I (04/18/17 22:30) Citric Acid-Sodium Citrate Liq (Bicitra (04/18/17 22:30) Fentanyl Inj (Fentanyl Inj) (04/18/17 22:30) Fentanyl Inj (Fentanyl Inj) (04/18/17 22:30) Penicillin G Potassium Inj (Pfizerpen-G (04/18/17 23:00) Penicillin G Potassium Inj (Pfizerpen-G (04/19/17 03:00) Complete Blood Count With Diff (04/18/17 22:21) Hold Clot (04/18/17 22:21) Abo/Rh Blood Type (04/18/17 22:21) Urinalysis - C+S If Indicated (04/18/17 22:21) Drug Screen, Random Urine (04/18/17 22:21) Type And Screen (04/18/17 22:21) Resp Oxygen Non Rebreathe Mask (04/18/17 ) ^ Epidural / Intrathecal Infus (04/18/17 22:21) Oxytocin 30 Units-500ml Premix (Pitocin (04/18/17 22:30) Lidocaine 1% Inj (50 Ml) (Xylocaine 1% I (04/18/17 22:30) Light Mineral Oil (Muri-Lube Oil) (04/18/17 22:30) Ob (2e) Additional Admit Info (04/18/17 22:24) Assessment/Plan Assessment and Plan 31-year-old at 40 weeks and 4 days presenting to the ED with SROM. She is a patient of Dr. Devries's. Admitting with anticipation of vaginal delivery. SROM with anticipated delivery - Clear gush of fluid reported at 2115 on 04/18/17 - GBS positive - Continuous heart tracing - Routine labor labs pending - Pitocin for labor augmentation - First dose of penicillin at 2300 Zackery Araujo MD R1 Apr 18, 2017 23:06
--- NOTE | 2017-04-18 23:12 | PD.LABORPN ---
Subjective Subjective Patient is resting in bed comfortably. Objective Objective Pelvic Exam: Cervix: midposition Dilatation: 3 Effacement: 70 Station: -2 Presentation: vertex Membranes: SROM Uterine Contractions: q7-8min FHT's: Category: I Baseline: 131 Reactive: + Variability: moderate Decels: none Assessment/Plan Assessment and Plan 31 year old at 40-4/7 weeks gestation. 1. IUP- Category I tracing, reassuring. 2. Labor- SROM, will augment with Pitocin 30. 3. Scoliosis- s/p reconstructive surgery. 4. Asthma- Stable. Albuterol inh PRN shortness of breath. 5. Rh negative- s/p Rhogam on 02/17/17. 6. GBS positive- penicillin ppx 7. Anticipate vaginal delivery. Rupal Daniel Dr., MD, R3 Apr 18, 2017 23:12
[2017-04-18 23:14] LABS: BACTERIA, URINE OCC /hpf; BILIRUBIN, URINE NEG (NEG); BLOOD, URINE MOD (NEG); GLUCOSE,URINE NEG (NEG); KETONE, URINE NEG (NEG); MUCUS URINE FEW /lpf (OCC); NITRITE,URINE NEG (NEG); PH, URINE 6.5 (5.0-8.5); SQUAMOUS EPITHELIAL CELL URINE 11 /hpf (0-5); URINE COLOR YELLOW (YELLW/STRAW); URINE LEUKOCYTE ESTERASE MOD (NEG)
[2017-04-18 23:22] LABS: BASOPHIL % 0.5 % (0.0-2.0); EOSINOPHIL # 0.1 TH/MM3 (0-0.4); EOSINOPHIL % 1.5 % (0.0-4.0); HEMATOCRIT 33.2 % (35.0-46.0); HEMOGLOBIN 11.5 GM/DL (11.6-15.3); LYMPH % 23.8 % (9.0-44.0); LYMPHOCYTE # 2.1 TH/MM3 (1.0-4.8); MEAN CELL VOLUME 76.4 FL (80.0-100.0); MEAN CORPUSCULAR HEMOGLOBIN 26.3 PG (27.0-34.0); MEAN CORPUSCULAR HGB CONC 34.5 % (32.0-36.0); MEAN PLATELET VOLUME 9.6 FL (7.0-11.0); MONO % 6.8 % (0.0-8.0); MONOCYTE # 0.6 TH/MM3 (0-0.9); NEUT % 67.4 % (16.0-70.0); PLATELET COUNT 225 TH/MM3 (150-450); RED BLOOD COUNT 4.35 MIL/MM3 (4.00-5.30); RED CELL DISTRIBUTION WIDTH 15.2 % (11.6-17.2); WHITE BLOOD COUNT 8.8 TH/MM3 (4.0-11.0)
[2017-04-18 23:58] VITALS: TEMP 97.7
[2017-04-18 23:59] VITALS: BP 107/58; PULSE 63
[2017-04-19] VITALS (52 sets, daily range): BP systolic 96–143; BP diastolic 34–89; PULSE 56–85; RESP 16–18; TEMP 97.4–98.8; O2SAT 100
[2017-04-19] MEDS ORDERED: ePHEDrine/NS 25 MG/5 ML SYRINGE ONE (01:08)
[2017-04-19] MEDS ORDERED: fentaNYL 2MCG-BUPIV 0.125% INJ 100 ML ONE (01:08)
--- NOTE | 2017-04-19 01:56 | PD.LABORPN ---
Subjective Subjective Patient is resting comfortably in bed with epidural in place. Objective Vital Signs Vital Signs Date Time Temp Pulse Resp B/P (MAP) Pulse Ox O2 Delivery O2 Flow Rate FiO2 04/19/17 01:30 70 04/19/17 01:27 68 120/70 (87) 04/19/17 01:25 71 04/19/17 01:24 72 123/69 (87) 04/19/17 01:21 73 126/70 (88) 04/19/17 01:20 69 04/19/17 01:18 70 130/70 (90) 04/19/17 01:16 65 143/84 (103) 04/19/17 01:16 65 143/84 (103) 04/19/17 01:15 72 04/19/17 01:14 18 04/19/17 01:12 84 139/82 (101) 04/19/17 01:11 67 141/79 (99) 04/19/17 01:10 85 04/19/17 01:05 76 04/19/17 00:00 18 04/18/17 23:59 63 107/58 (74) 04/18/17 23:58 97.7 Objective Pelvic Exam: Cervix: midposition Dilatation: 6 Effacement: 100 Station: 0 Presentation: vertex Membranes: SROM, light mec Uterine Contractions: q2-3min FHT's: Category: II Baseline: 115 Reactive: + Variability: moderate Decels: variable decelerations Assessment/Plan Assessment and Plan 31 year old at 40-4/7 weeks gestation. 1. IUP- Category II tracing- position change, IV fluids, O2 administered and Pitocin discontinued with improvement in heart tracing, continue to monitor closely. 2. Labor- SROM, expectant management. 3. Scoliosis- s/p reconstructive surgery. 4. Asthma- Stable. Albuterol neb PRN shortness of breath. 5. Rh negative- s/p Rhogam on 02/17/17. 6. GBS positive- penicillin ppx 7. Anticipate vaginal delivery. dw Rupal Moncada MD, R3 Apr 19, 2017 01:56
[2017-04-19] MEDS ORDERED: NO SYSTEM NARCOTICS PRN (02:00)
[2017-04-19] MEDS ORDERED: DO NOT ADMINISTER ANTICOAGULANTS PRN (02:00)
[2017-04-19] MEDS ORDERED: RESP: ALBUTEROL 2.5 MG/3 ML NEB (PRN) NEB (02:00)
[2017-04-19] MEDS ORDERED: fentaNYL 2MCG-BUPIV 0.125% 100 ML EPIDURAL SCH (02:00)
[2017-04-19] MEDS ORDERED: LIDOCAINE HCL 1% 20 ML VIAL ONE (02:04)
[2017-04-19] MEDS ORDERED: PENICILLIN G POTASSIUM INJ 2,500,000 UNITS in SODIUM CHLORIDE 0.9% INJ 100 ML IV SCH (03:00)
--- NOTE | 2017-04-19 03:12 | PD.OB.DELI ---
Weeks gestation: 40 Gest age assessed date: Apr 19, 2017 Pt started active labor?: Yes Medical induction of labor?: No Artificial rupture of membrane: No Anesthesia: Epidural Episiotomy: None Vaginal Delivery: Normal Presentation: Occiput anterior Nuchal Cord: None Delayed cord clamping (45 sec): Yes (60 sec) Infant: Female Delivery date: Apr 19, 2017 Delivery time: 02:57 One Minute : 8 Five Minute : 8 Weight: delayed for skin to skin Placenta: Spontaneous delivery, Intact, 3 vessel cord Laceration: No lacerations Estimated blood loss: 150cc Additional Information Supervised by Dr. Plaza. Rupal Devries MD, R3 Apr 19, 2017 03:12
[2017-04-19] MEDS ORDERED: oxyCODONE/ACETAMINOPHEN 5 MG/325 MG TAB PO PRN (03:15)
[2017-04-19] MEDS ORDERED: SODIUM CHLORIDE 0.9% FLUSH 10 ML FLUSH IV FLUSH PRN (03:15)
[2017-04-19] MEDS ORDERED: ONDANSETRON ODT 4 MG TAB PO PRN (03:15)
[2017-04-19] MEDS ORDERED: OXYTOCIN 30 UNITS-500ML PREMIX 500 ML IV SCH (03:15)
[2017-04-19] MEDS ORDERED: DOCUSATE SODIUM 50 MG/SENNA 8.6 MG TAB PO PRN (03:15)
[2017-04-19] MEDS ORDERED: WITCH HAZEL 50%/GLYCERIN 12.5% 40 PAD JAR TOPICAL PRN (03:15)
[2017-04-19] MEDS ORDERED: ZOLPIDEM TARTRATE 5 MG TAB PO PRN (03:15)
[2017-04-19] MEDS ORDERED: ALUMINUM/MAGNESIUM/SIMETH 30 ML CUP PO PRN (03:15)
[2017-04-19] MEDS ORDERED: BENZOCAINE 20% TOPICAL SPRAY 60 ML CAN TOPICAL PRN (03:15)
[2017-04-19] MEDS ORDERED: ACETAMINOPHEN 325 MG TAB PO PRN (03:15)
[2017-04-19] MEDS: IBUPROFEN 800 MG TAB PO PRN ×3 (05:22→23:25)
--- NOTE | 2017-04-19 07:58 | HHI.OB ---
Subjective Remarks PPD day # 0/. No acute issues overnight, vitals are stable, patient remains afebrile.Decreasing lochia and pain. Patient is ambulating without difficulty and voiding independently. She is feeding the baby via breast. She denies any nausea or vomiting and has a good appetite. Positive flatus/bowel movement. She denies any calf pain, chest pain, or shortness of breath. She is bonding well with infant. Objective Vitals/I&O Vital Signs Date Time Temp Pulse Resp B/P (MAP) Pulse Ox O2 Delivery O2 Flow Rate FiO2 04/19/17 05:50 66 18 103/68 (80) 100 04/19/17 05:50 98.0 04/19/17 04:35 18 04/19/17 04:31 59 105/63 (77) 04/19/17 04:16 56 115/63 (80) 04/19/17 04:00 59 123/56 (78) 04/19/17 03:50 18 04/19/17 03:45 62 113/45 (67) 04/19/17 03:30 63 120/75 (90) 04/19/17 03:20 97.6 04/19/17 03:20 18 04/19/17 03:15 68 119/70 (86) 04/19/17 03:09 64 111/72 (85) 04/19/17 03:05 18 04/19/17 03:00 70 124/89 (101) 04/19/17 02:55 73 04/19/17 02:50 70 04/19/17 02:45 69 04/19/17 02:45 74 113/65 (81) 04/19/17 02:40 67 04/19/17 02:35 71 04/19/17 02:30 72 120/72 (88) 04/19/17 02:30 67 04/19/17 02:25 71 04/19/17 02:20 61 04/19/17 02:15 18 04/19/17 02:15 68 120/71 (87) 04/19/17 02:15 97.4 04/19/17 02:15 62 04/19/17 02:10 81 04/19/17 02:05 74 04/19/17 02:00 69 111/50 (70) 04/19/17 02:00 64 04/19/17 01:55 67 04/19/17 01:50 60 115/53 (73) 04/19/17 01:50 61 04/19/17 01:48 58 104/46 (65) 04/19/17 01:46 78 96/34 (54) 04/19/17 01:45 62 04/19/17 01:42 58 116/60 (78) 04/19/17 01:40 63 04/19/17 01:39 60 111/66 (81) 04/19/17 01:35 65 04/19/17 01:33 60 113/65 (81) 04/19/17 01:30 70 04/19/17 01:27 68 120/70 (87) 04/19/17 01:25 71 04/19/17 01:24 72 123/69 (87) 04/19/17 01:21 73 126/70 (88) 04/19/17 01:20 69 04/19/17 01:18 70 130/70 (90) 04/19/17 01:16 65 143/84 (103) 04/19/17 01:16 65 143/84 (103) 04/19/17 01:15 72 04/19/17 01:14 18 04/19/17 01:12 84 139/82 (101) 04/19/17 01:11 67 141/79 (99) 04/19/17 01:10 85 04/19/17 01:05 76 04/19/17 00:00 18 04/18/17 23:59 63 107/58 (74) 04/18/17 23:58 97.7 Objective Remarks GENERAL: Well-nourished, well-developed patient. CARDIOVASCULAR: Regular rate and rhythm without murmurs, gallops, or rubs. RESPIRATORY: Breath sounds equal bilaterally. No accessory muscle use. ABDOMEN/GI: Abdomen soft, non-tender. Fundus: Firm, non-tender at umbilicus. GENITOURINARY: Light to moderate bleeding. EXTREMITIES: No cyanosis or edema, non-tender, without signs of DVT. Medications and IVs Current Medications Medications (Trade) Dose Ordered Sig/Brayan Route Start Time Stop Time Status Last Admin (Albuterol Neb) 2.5 mg Q4HR NEB PRN NEB 04/19/17 02:00 (NS Flush) 2 ml BID IV FLUSH 04/19/17 09:00 (NS Flush) 2 ml UNSCH PRN IV FLUSH 04/19/17 03:15 Oxytocin 500 ml @ 100 mls/hr CONTINUOUS IV 04/19/17 03:15 04/19/17 08:14 04/19/17 05:24 (Tylenol) 650 mg Q4H PRN PO 04/19/17 03:15 (Motrin) 800 mg Q8H PRN PO 04/19/17 03:15 04/19/17 05:22 (Percocet 5-325 Mg) 1 tab Q4H PRN PO 04/19/17 03:15 (Percocet 5-325 Mg) 2 tab Q4H PRN PO 04/19/17 03:15 (Americaine 20% Top Spr) 1 spray Q4H PRN TOPICAL 04/19/17 03:15 (Tucks Pads) 1 applic QID PRN TOPICAL 04/19/17 03:15 (Viry-Colace) 2 tab Q12H PRN PO 04/19/17 03:15 (Ambien) 5 mg HS PRN PO 04/19/17 03:15 (M-M-R Ii Inj) 0.5 ml ONCE ONCE SQ 04/19/17 16:00 04/19/17 16:01 (Boostrix Inj) 0.5 ml ONCE ONCE IM 04/19/17 16:00 04/19/17 16:01 (Mag-Al Plus Susp Liq) 15 ml Q8H PRN PO 04/19/17 03:15 (Zofran Odt) 4 mg Q6H PRN PO 04/19/17 03:15 Assessment/Plan Assessment and Plan 31 y/o female who is PPD # 1 s/p . -Continue routine care. -Percocet and Motrin PRN pain. - Mom A-, Baby O+- Rhogam to be administered today. -Encouraged OOB. Advised pelvic rest for 6 wks. -Re: ctrl, she would like a tubal ligation. -Discharge home in 1-2 days. Rupal Daniel MD, R3 Apr 19, 2017 07:58
[2017-04-19] MEDS ORDERED: SODIUM CHLORIDE 0.9% FLUSH 10 ML FLUSH IV FLUSH SCH (09:00)
[2017-04-19] MEDS ORDERED: MEASLES, MUMPS, RUBELLA VACCINE 0.5 ML VIAL SQ ONE (16:00)
[2017-04-19] MEDS ORDERED: DIPHTH/TETANUS/ACEL PERTUSSIS (BOOSTER) 0.5 ML VIAL/PFS IM ONE (16:00)
--- NOTE | 2017-04-20 07:36 | HHI.OB ---
Subjective Remarks PPD day # 1. No acute issues overnight, vitals are stable, patient remains afebrile. Decreasing lochia and pain. Patient is ambulating without difficulty and voiding independently. She is feeding the baby via breast. She denies any nausea or vomiting and has a good appetite. Positive flatus/bowel movement. She denies any calf pain, chest pain, or shortness of breath. She is bonding well with infant. Objective Vitals/I&O Vital Signs Date Time Temp Pulse Resp B/P (MAP) Pulse Ox O2 Delivery O2 Flow Rate FiO2 04/19/17 20:00 98.8 77 16 104/65 (78) 04/19/17 09:00 98.0 69 16 115/64 (81) Objective Remarks GENERAL: Well-nourished, well-developed patient. CARDIOVASCULAR: Regular rate and rhythm without murmurs, gallops, or rubs. RESPIRATORY: Breath sounds equal bilaterally. No accessory muscle use. ABDOMEN/GI: Abdomen soft, non-tender. Fundus: Firm, non-tender at umbilicus. GENITOURINARY: Light to moderate bleeding. EXTREMITIES: No cyanosis or edema, non-tender, without signs of DVT. Medications and IVs Current Medications Medications (Trade) Dose Ordered Sig/Brayan Route Start Time Stop Time Status Last Admin (Albuterol Neb) 2.5 mg Q4HR NEB PRN NEB 04/19/17 02:00 (NS Flush) 2 ml BID IV FLUSH 04/19/17 09:00 (NS Flush) 2 ml UNSCH PRN IV FLUSH 04/19/17 03:15 (Tylenol) 650 mg Q4H PRN PO 04/19/17 03:15 (Motrin) 800 mg Q8H PRN PO 04/19/17 03:15 04/19/17 23:25 (Percocet 5-325 Mg) 1 tab Q4H PRN PO 04/19/17 03:15 (Percocet 5-325 Mg) 2 tab Q4H PRN PO 04/19/17 03:15 (Americaine 20% Top Spr) 1 spray Q4H PRN TOPICAL 04/19/17 03:15 (Tucks Pads) 1 applic QID PRN TOPICAL 04/19/17 03:15 (Viry-Colace) 2 tab Q12H PRN PO 04/19/17 03:15 (Ambien) 5 mg HS PRN PO 04/19/17 03:15 (Mag-Al Plus Susp Liq) 15 ml Q8H PRN PO 04/19/17 03:15 (Zofran Odt) 4 mg Q6H PRN PO 04/19/17 03:15 Assessment/Plan Assessment and Plan 31 y/o female who is PPD # 1 s/p . -Continue routine care. -Percocet and Motrin PRN pain. - Mom A-, Baby O+- s/p Rhogam on 04/19. -Encouraged OOB. Advised pelvic rest for 6 wks. -Re: ctrl, she would like a tubal ligation. -Anticipate discharge home tomorrow. Rupal Bonilla MD, R3 Apr 20, 2017 07:36
[2017-04-20 08:00] VITALS: BP 94/62; PULSE 71; RESP 16; TEMP 98.1
[2017-04-20] MEDS: IBUPROFEN 800 MG TAB PO PRN (08:33)
[2017-04-20] MEDS: oxyCODONE/ACETAMINOPHEN 5 MG/325 MG TAB PO PRN (13:47)
[2017-04-20 20:00] VITALS: BP 105/61; PULSE 70; RESP 18; TEMP 98.8; O2SAT 98
[2017-04-21] MEDS ORDERED: IBUP1TAB7 PO (07:05)
[2017-04-21] MEDS ORDERED: PERI PO (07:05)
--- NOTE | 2017-04-21 07:06 | HHI.DCPOC ---
Discharge Care Plan Diagnosis: (1) (spontaneous vaginal delivery) Report Symptoms to Your Doctor -Temperature above 100.5 degrees -Redness, of incision or excessive or foul smelling drainage -Unusual pain or calf pain -Increased vaginal bleeding -Painful or difficulty urinating -Feelings of extreme sadness or anxiety after 2 weeks Goals to Promote Your Health * To prevent worsening of your condition and complications * To maintain your health at the optimal level Directions to Meet Your Goals Take your medications as prescribed Follow your dietary instruction Follow activity as directed Ensure plenty of rest for recovery Drink fluids for hydration Keep your appointments as scheduled Take your immunizations and boosters as scheduled If your symptoms worsen call your PCP, if no PCP go to Urgent Care Center or Emergency Room Smoking is Dangerous to Your Health. Avoid second hand smoke Call the 24-hour crisis hotline for domestic abuse at Rupal Devries MD, R3 Apr 21, 2017 07:06
--- NOTE | 2017-04-21 07:09 | HHI.OB ---
Subjective Remarks PPD day # 2. No acute issues overnight, vitals are stable, patient remains afebrile. Decreasing lochia and pain. Patient is ambulating without difficulty and voiding independently. She is feeding the baby via breast. She denies any nausea or vomiting and has a good appetite. Positive flatus/bowel movement. She denies any calf pain, chest pain, or shortness of breath. She is bonding well with infant. Objective Vitals/I&O Vital Signs Date Time Temp Pulse Resp B/P (MAP) Pulse Ox O2 Delivery O2 Flow Rate FiO2 04/20/17 20:00 98.8 70 18 105/61 (76) 98 04/20/17 08:00 98.1 71 16 94/62 (73) Objective Remarks GENERAL: Well-nourished, well-developed patient. CARDIOVASCULAR: Regular rate and rhythm without murmurs, gallops, or rubs. RESPIRATORY: Breath sounds equal bilaterally. No accessory muscle use. ABDOMEN/GI: Abdomen soft, non-tender. Fundus: Firm, non-tender at umbilicus. GENITOURINARY: Light to moderate bleeding. EXTREMITIES: No cyanosis or edema, non-tender, without signs of DVT. Medications and IVs Current Medications Medications (Trade) Dose Ordered Sig/Brayan Route Start Time Stop Time Status Last Admin (Albuterol Neb) 2.5 mg Q4HR NEB PRN NEB 04/19/17 02:00 (NS Flush) 2 ml BID IV FLUSH 04/19/17 09:00 (NS Flush) 2 ml UNSCH PRN IV FLUSH 04/19/17 03:15 (Tylenol) 650 mg Q4H PRN PO 04/19/17 03:15 (Motrin) 800 mg Q8H PRN PO 04/19/17 03:15 04/20/17 08:33 (Percocet 5-325 Mg) 1 tab Q4H PRN PO 04/19/17 03:15 04/20/17 13:47 (Percocet 5-325 Mg) 2 tab Q4H PRN PO 04/19/17 03:15 (Americaine 20% Top Spr) 1 spray Q4H PRN TOPICAL 04/19/17 03:15 (Tucks Pads) 1 applic QID PRN TOPICAL 04/19/17 03:15 (Viry-Colace) 2 tab Q12H PRN PO 04/19/17 03:15 (Ambien) 5 mg HS PRN PO 04/19/17 03:15 (Mag-Al Plus Susp Liq) 15 ml Q8H PRN PO 04/19/17 03:15 (Zofran Odt) 4 mg Q6H PRN PO 04/19/17 03:15 Assessment/Plan Assessment and Plan 31 y/o female who is PPD # 2 s/p . -Continue routine care. -Percocet and Motrin PRN pain. - Mom A-, Baby O+- s/p Rhogam on 04/19. -Encouraged OOB. Advised pelvic rest for 6 wks. -Re: ctrl, she would like a tubal ligation. -Anticipate discharge home today. Rupal Daniel MD, R3 Apr 21, 2017 07:09
[2017-04-21 08:00] VITALS: BP 114/66; PULSE 72; RESP 16; TEMP 97.8
[2017-04-21] MEDS: oxyCODONE/ACETAMINOPHEN 5 MG/325 MG TAB PO PRN (08:50)
[2017-04-21] MEDS: IBUPROFEN 800 MG TAB PO PRN (08:50)
== END 2017-04-21 10:49 | disposition home or self-care (01) | DRG 775 ==
LOC: HOBED 21:41 → H2EB 22:27 → H1EA 04-19 05:37
PROVIDERS: ADMIT Obstetrics & Gynecology Maternal & Fetal Medicine; ATTEND Obstetrics & Gynecology Maternal & Fetal Medicine
PROC: 10E0XZZ Delivery of Products of Conception, External Approach (ICD-10-PCS; principal; 2017-04-19)
PROC: 00HU33Z Insertion of Infusion Device into Spinal Canal, Percutaneous Approach (ICD-10-PCS; 2017-04-19)
PROC: 3E0R3BZ Introduction of Anesthetic Agent into Spinal Canal, Percutaneous Approach (ICD-10-PCS; 2017-04-19)
DX: O99.824 Streptococcus B carrier state complicating childbirth (principal); M41.9 Scoliosis, unspecified; Z37.0 Single live birth; J45.909 Unspecified asthma, uncomplicated; Z3A.40 40 weeks gestation of pregnancy; O99.52 Diseases of the respiratory system complicating childbirth; Z82.49 Family history of ischemic heart disease and other diseases of the circulatory system
CPT/HCPCS: 59025; 80307; 81001; 84112; 85025; 85461; 86850; 86900; 86901; 87086; 90384; 99285; J2540; J2590; J2790; J3010; J7040; J7120

== ENCOUNTER 2017-05-06 19:35 | Observation (INO) | payer OTHER ==
[~2017-05-06] VITALS: Ht 162.6 cm; Wt 68.0 kg
[~2017-05-06 19:35] MED LIST changes: +IBUP1TAB7 PO; +PERI PO; -RANI150T PO
[2017-05-06 19:37] VITALS: BP 115/72; PULSE 79; RESP 16; TEMP 98.1; O2SAT 99
--- NOTE | 2017-05-06 21:43 | PD ---
HPI Chief Complaint: Related Problem Time Seen by Provider: 20:42 Travel History International Travel<30 days: No Contact w/Intl Traveler<30days: No Traveled to known affect area: No History of Present Illness HPI Patient had a baby 2 weeks ago normal vaginal delivery she was GBS positive but took antibiotics prior by mouth during her delivery she had no fever during delivery and child is healthy and alert and with her bedside patient is complaining that she passed a bright red clot today and comes to the ER with the complaint of having bleeding she brings a picture of the clot on her iPhone and she says she had cramp.-like cramping before the clot came out. She reports that she was told her placenta was intact on delivery and has had no lochia prior to tonight but it is not brown it is a bright red clot. There is no vessels in the clot that she shows me no signs that looks like placenta. PFSH Past Medical History Asthma: Yes Diminished Hearing: No Respiratory: Yes (ASTHMA) ?: Not : 3 Para: 2 Social History Alcohol Use: No Tobacco Use: No Substance Use: No Allergies-Medications (Allergen,Severity, Reaction): Coded Allergies: diphenhydramine (Unverified Allergy, Severe, SWELLIG, 05/06/17) pseudoephedrine (Unverified Allergy, Severe, SWELLING, 05/06/17) Reported Meds & Prescriptions Reported Meds & Active Scripts Active Gnp Senna Plus 8.6-50 mg (Sennosides-Docusate Sodium) 8.6 Mg-50 Mg Tab 2 Tab PO Q12H PRN Ibuprofen 800 Mg Tab 800 Mg PO Q8H PRN Proair Hfa 8.5 GM Inh (Albuterol Sulfate) 90 Mcg/Act Aer 2 Puff INH Q4-6H PRN 108 mcg/actuation Reported Plus Iron 29-1 mg ( Vit-Iron Carbonyl) 1 Tab Tab 1 Tab PO DAILY Review of Systems Except as stated in HPI: all other systems reviewed are Neg Gastrointestinal: Positive: Abdominal Pain Genitourinary: Positive: Vaginal Bleeding (cramp-like pain prior to passing the clot) Physical Exam Narrative GENERAL: Nontoxic no hypotension no orthostatic signs no shortness of breath SKIN: Warm and dry. HEAD: Atraumatic. Normocephalic. EYES: Pupils equal and round. No scleral icterus. No injection or drainage. ENT: No nasal bleeding or discharge. Mucous membranes pink and moist. NECK: Trachea midline. No JVD. CARDIOVASCULAR: Regular rate and rhythm. RESPIRATORY: No accessory muscle use. Clear to auscultation. Breath sounds equal bilaterally. GASTROINTESTINAL: Abdomen soft, non-tender, nondistended. Hepatic and splenic margins not palpable. MUSCULOSKELETAL: Extremities without clubbing, cyanosis, or edema. No obvious deformities. NEUROLOGICAL: Awake and alert. No obvious cranial nerve deficits. Motor grossly within normal limits. Five out of 5 muscle strength in the arms and legs. Normal speech. PSYCHIATRIC: Appropriate mood and affect; insight and judgment normal. Data Data Last Documented VS Vital Signs Date Time Temp Pulse Resp B/P (MAP) Pulse Ox O2 Delivery O2 Flow Rate FiO2 05/06/17 19:37 98.1 79 16 115/72 (86) 99 Room Air Orders Orders Us Pelvis Comp Software Clerk/Non-Preg (05/06/17 ) Complete Blood Count With Diff (05/06/17 22:34) Comprehensive Metabolic Panel (05/06/17 22:34) Prothrombin Time / Inr (Pt) (05/06/17 22:34) Admit Order (Ed Use Only) (05/06/17 22:37) MDM Medical Decision Making Medical Screen Exam Complete: Yes Emergency Medical Condition: Yes Differential Diagnosis The patient has vaginal bleeding clots after having a baby vaginal delivery 2 weeks ago she is worried she may have retained products she called her [employer] who told her to go to L&D but L&D told her to come to the ER. [place] versus septic versus Narrative Course Patient has an ultrasound that shows what could be retained products I called the residence who delivered her and they see her however the patient would like to go home and come back scheduled they decided to give her Methergine and have her follow-up patient prefers to do that as opposed to staying and having D&C Diagnosis Primary Impression: Retained products of conception without hemorrhage Patient Instructions: General Instructions, Bleeding (ED) Scripts Methylergonovine (Methergine) 0.2 Mg Tab 0.2 MG PO Q6HR for Prevents Bleeding, #8 TAB 0 Refills Prov: Murali Valadez MD R2 05/07/17 Roberto Byrd MD May 06, 2017 21:43
--- NOTE | 2017-05-06 22:07 | RADRPT ---
EXAM DATE/TIME: 05/06/2017 21:32 [facility] COMPARISON: No previous studies available for comparison. INDICATIONS : Retained products of conception. MEDICAL HISTORY : Asthma. SURGICAL HISTORY : Back surgery. ENCOUNTER: Initial ACUITY: 2 weeks PAIN SCORE: 4/10 LOCATION: Bilateral pelvis MEASUREMENTS: UTERUS: 11.1 x 7.5 x 5.2 cm ENDOMETRIAL STRIPE: 5 mm RIGHT OVARY: 2.6 x 1.5 x 1.7 cm LEFT OVARY: 2.4 x 1.9 x 1.2 cm FINDINGS: There is some fluid remaining within the endometrial cavity raising the possibility of retained produ cts of conception. Clinical correlation is recommended. The ovaries are unremarkable bilaterally. No free fluid is noted within the cul-de-sac. No adnexal mass is noted. CONCLUSION: Some fluid remaining within the endometrial cavity raising the possibility of retaine d products of conception. Clinical correlation is recommended. Sourav Marie MD on May 06, 2017 at 22:02 Board Certified Radiologist. This report was verified electronically.
[2017-05-06 23:30] VITALS: O2SAT 98
[2017-05-06 23:32] LABS: AUTOMATED NEUTROPHIL # 2.8 TH/MM3 (1.8-7.7); BASOPHIL # 0.1 TH/MM3 (0-0.2); BASOPHIL % 0.9 % (0.0-2.0); EOSINOPHIL # 0.3 TH/MM3 (0-0.4); EOSINOPHIL % 5.4 % (0.0-4.0); HEMATOCRIT 39.5 % (35.0-46.0); HEMOGLOBIN 13.1 GM/DL (11.6-15.3); LYMPH % 40.9 % (9.0-44.0); LYMPHOCYTE # 2.4 TH/MM3 (1.0-4.8); MEAN CELL VOLUME 77.4 FL (80.0-100.0); MEAN CORPUSCULAR HEMOGLOBIN 25.7 PG (27.0-34.0); MEAN CORPUSCULAR HGB CONC 33.2 % (32.0-36.0); MEAN PLATELET VOLUME 8.1 FL (7.0-11.0); MONO % 5.3 % (0.0-8.0); MONOCYTE # 0.3 TH/MM3 (0-0.9); NEUT % 47.5 % (16.0-70.0); PLATELET COUNT 283 TH/MM3 (150-450); RED CELL DISTRIBUTION WIDTH 15.7 % (11.6-17.2); WHITE BLOOD COUNT 5.9 TH/MM3 (4.0-11.0)
[2017-05-06 23:53] LABS: ALBUMIN 3.6 GM/DL (3.4-5.0); AST (GOT) 14 U/L (15-37); BICARBONATE 28.3 MEQ/L (21.0-32.0); BLOOD UREA NITROGEN 14 MG/DL (7-18); CALCIUM 9.5 MG/DL (8.5-10.1); CHLORIDE 104 MEQ/L (98-107); CREATININE 0.68 MG/DL (0.50-1.00); GLOMERULAR FILTRATION RATE 102 ML/MIN (>89); GLUCOSE,RANDOM 89 MG/DL (74-106); SODIUM (NA) 139 MEQ/L (136-145)
[2017-05-06 23:54] LABS: ALT (GPT) 21 U/L (10-53)
[2017-05-06 23:57] LABS: ALKALINE PHOSPHATASE 68 U/L (45-117); TOTAL BILIRUBIN ADULT 0.2 MG/DL (0.2-1.0)
[2017-05-07] MEDS ORDERED: METH-703 PO (01:12)
--- NOTE | 2017-05-07 01:14 | HHI.DCPOC ---
Discharge Care Plan Diagnosis: (1) bleeding (2) care following vaginal delivery Goals to Promote Your Health * To prevent worsening of your condition and complications * To maintain your health at the optimal level Directions to Meet Your Goals Take your medications as prescribed Follow your dietary instruction Follow activity as directed Keep your appointments as scheduled Take your immunizations and boosters as scheduled If your symptoms worsen call your PCP, if no PCP go to Urgent Care Center or Emergency Room Smoking is Dangerous to Your Health. Avoid second hand smoke Call the 24-hour hour crisis hotline for domestic abuse at Murali Valadez MD R2 May 07, 2017 01:14
[2017-05-07] MEDS ORDERED: METHYLERGONOVINE MALEATE 0.2 MG TAB PO SCH (01:15)
--- NOTE | 2017-05-07 01:21 | PD.CONS ---
HPI Chief Complaint vaginal bleeding Travel History International Travel<30 Days: No Contact w/Intl Traveler<30Days: No Known Affected Area: No History of Present Illness HPI 31-year-old P 4014, status post 04/19/17 care uncomplicated except by GBS positive The patient reports that she had an uncomplicated vaginal delivery on 04/19/17 and was of slight discharge in 04/21/17. She reports she has had normal lochia since, using approximately 3 pads per day. She reports the pads are not saturated. She denies any foul-smelling discharge. She denies any fever or chills. She reports that she passed a clot about 5 PM today. The patient describes this clot as being approximately 2-3 cm in width by about 4 cm in length. She reports that the clot was lying on top of her ricky-pad, but was not a large or thick clot. She denies passing any further clots and denies any other heavy bleeding. She reports she is breast-feeding without difficulty. She prefers to avoid surgical intervention if at all possible. Para: 4 History Past Medical History Narrative Medical Asthma Obstetric History Obstetric History P4014 4 Status post 04/19/17, uncomplicated delivery Menarche at age 14 Menses every month Menses last 3-4 days Denies history of abnormal Pap tests or sexually transmitted infections Past Surgical History Narrative Surgical Back surgery for scoliosis Family History Narrative Family History HTN, CAD, [place] Social History Alcohol Use: No Tobacco Use: No Substance Abuse: No Allergies-Medications (Allergen,Severity, Reaction): Coded Allergies: diphenhydramine (Unverified Allergy, Severe, SWELLIG, 05/06/17) pseudoephedrine (Unverified Allergy, Severe, SWELLING, 05/06/17) Home Meds Active Scripts Methylergonovine (Methergine) 0.2 Mg Tab, 0.2 MG PO Q6HR for Prevents Bleeding, #8 TAB 0 Refills Prov:Murali Valadez MD R2 05/07/17 Sennosides-Docusate Sodium (Gnp Senna Plus 8.6-50 mg) 8.6 Mg-50 Mg Tab, 2 TAB PO Q12H Y for CONSTIPATION, #30 TAB Prov:Rupal Devries MD, R3 04/21/17 Ibuprofen (Ibuprofen) 800 Mg Tab, 800 MG PO Q8H Y for CRAMPING, #30 TAB Prov:Rupal Devries MD, R3 04/21/17 Albuterol 8.5 GM Inh (Proair Hfa 8.5 GM Inh) 90 Mcg/Act Aer, 2 PUFF INH Q4-6H Y for SHORTNESS OF BREATH, #1 INHALER 0 Refills 108 mcg/actuation Prov:Rupal Devries MD, R3 03/01/17 Reported Medications Vit-Iron Carbonyl ( Plus Iron 29-1 mg) 1 Tab Tab, 1 TAB PO DAILY for Nutritional Supplement, #30 TAB 0 Refills 11/09/16 Review of Systems General / Constitutional: No: Fever, Weight Gain, Weight Loss, Chills, Other Eyes: No: Diploplia, Blurred Vision, Visual changes, Pain, Photophobia, Other HENT: No: Headaches, Vertigo, Dental Difficulties, Lightheadedness, Other Cardiovascular: No: Irregular Rhythm, Chest Pain or Discomfort, Palpitations, Tachycardia, Syncope, Varicosities, Edema, Cyanosis, Other Respiratory: No: Cough, Short of Breath, Wheezing, Other Gastrointestinal: No: Nausea, Vomiting, Diarrhea, Abdominal Pain, Hematemesis, Hematochezia, Constipation, Changes in Bowel Habits, Indigestion, Loss of Appetite, Other Genitourinary: Vaginal Bleeding, No: Urgency, Frequency, Dysuria, Nocturia, Hematuria, Decreased Urinary Output, Oliguria, Hesitancy, Dribbling, Incontinence, Pelvic Pain, Dyspareunia, Discharge, Menorrhagia, Other Musculoskeletal: No: Limited ROM, Weakness, Cramping, Edema, Pain, Other Skin: No Rash, No Itching, No Dryness, No Lumps, No Change in Pigmentation, No Change in Nails, No Alopecia, No Lesions, No Breast Lumps, No Breast Tenderness , No Breast Swelling, No Other Neurologic: No: Weakness, Dizziness, Syncope, Focal Abnormalities, Coordination Problem, Headache, Slurred Speech, Seizures, Other Psychiatric: No: Anxiety, Depression, Suicidal Ideations, Disorder of Thought, Mood Disorder, Substance Abuse, Homicidal Ideation, Other Endocrine: No: Heat Intolerance, Cold Intolerance, Polydipsia, Polyuria, Other Hematologic/Lymphatic: No Easy Bruising, No Lymph Node Enlargement, No Other Physical Exam Vital Signs Date Time Temp Pulse Resp B/P (MAP) Pulse Ox O2 Delivery O2 Flow Rate FiO2 05/06/17 23:30 98 21 05/06/17 19:37 98.1 79 16 115/72 (86) 99 Room Air Narrative GENERAL: Well-nourished, well-developed patient. SKIN: Warm and dry. HEAD: Normocephalic and atraumatic. EYES: No scleral icterus. No injection or drainage. ENT: No nasal drainage noted. Mucous membranes pink. Airway patent. NECK: Supple, trachea midline. No JVD. CARDIOVASCULAR: Regular rate and rhythm without murmurs, gallops, or rubs. RESPIRATORY: Breath sounds equal bilaterally. No accessory muscle use. BREASTS: Deferred ABDOMEN/GI: Abdomen soft, non-tender, bowel sounds present, no rebound, no guarding GENITOURINARY: External Genitalia: intact and normal in appearance. Normal BUS glands. Grossly normal rugate. A very small amount of dark lochia was noted in the vaginal vault, approximately 5 cc. There is no active bleeding noted from the cervical os and the cervical os appeared closed. There was no foul-smelling discharge. A bimanual examination revealed no uterine masses or tenderness. The cervical os was closed. EXTREMITIES: No cyanosis or edema. BACK: Nontender without obvious deformity. NEUROLOGICAL: Awake and alert. Motor and sensory grossly within normal limits. Five out of 5 muscle strength in all muscle groups. Normal speech. Musculoskeletal: Grossly normal range of motion, gait, muscle strength Psychiatric: Grossly normal memory and affect Imaging: Transabdominal ultrasound. Of note the patient reports she did not have a transvaginal ultrasound and that no probe was placed into her vagina, but that the only probe that was used was the abdominal probe. EXAM DATE/TIME: 05/06/2017 21:32 [facility] COMPARISON: No previous studies available for comparison. INDICATIONS : Retained products of conception. MEDICAL HISTORY : Asthma. SURGICAL HISTORY : Back surgery. ENCOUNTER: Initial ACUITY: 2 weeks PAIN SCORE: 4/10 LOCATION: Bilateral pelvis MEASUREMENTS: UTERUS: 11.1 x 7.5 x 5.2 cm ENDOMETRIAL STRIPE: 5 mm RIGHT OVARY: 2.6 x 1.5 x 1.7 cm LEFT OVARY: 2.4 x 1.9 x 1.2 cm FINDINGS: There is some fluid remaining within the endometrial cavity raising the possibility of retained products of conception. Clinical correlation is recommended. The ovaries are unremarkable bilaterally. No free fluid is noted within the cul-de-sac. No adnexal mass is noted. CONCLUSION: Some fluid remaining within the endometrial cavity raising the possibility of retained products of conception. Clinical correlation is recommended. Sourav Marie MD on May 06, 2017 at 22:02 Board Certified Radiologist. Data Data Orders Orders Us Pelvis Comp Rag Grader/Non-Preg (05/06/17 ) Complete Blood Count With Diff (05/06/17 22:34) Comprehensive Metabolic Panel (05/06/17 22:34) Prothrombin Time / Inr (Pt) (05/06/17 22:34) Admit Order (Ed Use Only) (05/06/17 22:37) Place In Observation (05/06/17 ) Vital Signs (Adult) ABNER.Q4H (05/06/17 23:13) Activity Oob With Assistance (05/06/17 23:13) Intake + Output 06,14,22 (05/06/17 23:13) Notify Dr: Other (05/06/17 23:13) Resp Oxygen Shukri C Titrat 1-4 L (05/06/17 ) Consult Gynecology (05/07/17 ) Methylergonovine (Methergine) (05/07/17 01:15) Labs Laboratory Tests Test 05/06/17 23:13 White Blood Count 5.9 Red Blood Count 5.10 Hemoglobin 13.1 Hematocrit 39.5 Mean Corpuscular Volume 77.4 Mean Corpuscular Hemoglobin 25.7 Mean Corpuscular Hemoglobin Concent 33.2 Red Cell Distribution Width 15.7 Platelet Count 283 Mean Platelet Volume 8.1 Neutrophils (%) (Auto) 47.5 Lymphocytes (%) (Auto) 40.9 Monocytes (%) (Auto) 5.3 Eosinophils (%) (Auto) 5.4 Basophils (%) (Auto) 0.9 Neutrophils # (Auto) 2.8 Lymphocytes # (Auto) 2.4 Monocytes # (Auto) 0.3 Eosinophils # (Auto) 0.3 Basophils # (Auto) 0.1 CBC Comment DIFF FINAL Differential Comment Prothrombin Time 10.0 Prothromb Time International Ratio 1.0 Blood Urea Nitrogen 14 Creatinine 0.68 Random Glucose 89 Total Protein 8.0 Albumin 3.6 Calcium Level 9.5 Alkaline Phosphatase 68 Aspartate Amino Transf (AST/SGOT) 14 Alanine Aminotransferase (ALT/SGPT) 21 Total Bilirubin 0.2 Sodium Level 139 Potassium Level 4.0 Chloride Level 104 Carbon Dioxide Level 28.3 Anion Gap 7 Estimat Glomerular Filtration Rate 102 MDM Plan Assessment/plan: 31-year-old P4014 1. day #17 2. Vaginal bleeding: The patient passed a relatively small clot at home and was instructed to come to the ED for further evaluation. Upon evaluation she appears to have normal appearing lochia and reports that she has not been having heavy vaginal bleeding with the exception of the small clot. A transabdominal ultrasound was performed which showed some fluid in the endometrial canal however did not see specifically indicate there were retained products of conception. The ultrasound images were reviewed and there is no clear evidence of retained products of conception. I discussed at length with the patient the option of conservative management with Methergine 0.2 every 6 hours for 48 hours that would help expel any fluid or blood in the endometrial canal with a subsequent ultrasound to further evaluate the endometrial cavity for any retained products of conception. We discussed that if there are small fragments of retained products these may or may not be expelled with the Methergine. We discussed as an alternative, the patient could maintain her observation status and be treated with Methergine while undergoing observation. We would consider reevaluating an ultrasound in 1-2 days with intervention if needed as based on ultrasound report or bleeding pattern. Lastly, we discussed the option of proceeding with dilation and curettage to ensure that there are no remaining products of conception. We discussed that most typically, retained products of conception present with heavy vaginal bleeding, not just the passage of one small clot. In fact rather than being a large informed clot this appeared to be more like a streak of clotted blood on her ricky-pad. The patient prefers to avoid surgical intervention if at all possible. The patient would prefer to avoid continued observation of possible. The patient consents to return for any heavy vaginal bleeding, fever/chills, nausea/vomiting, or any other concerns. Of note there is no evidence of leukocytosis or uterine tenderness. There is no evidence of foul smelling discharge or other concerning signs of endometritis. At this point based on a lengthy discussion with the patient as well as consideration of the patient's preferences, we will Rx Methergine 0.2 mg every 6 hours 48 hours. The patient is instructed to return for any heavy vaginal bleeding or other concern is. She is instructed to follow-up in the office in 2 days with repeat ultrasound examination. All the patient's questions were answered. Report was given to the primary team. Please call if there is any further concerns or needs with this patient. 3. Breast-feeding: Patient is breast-feeding without difficulty. Admitting diagnosis: Retain products Scripts Methylergonovine (Methergine) 0.2 Mg Tab 0.2 MG PO Q6HR for Prevents Bleeding, #8 TAB 0 Refills Prov: Murali Valadez MD R2 05/07/17 Patient Instructions: General Instructions, Bleeding (ED) Ness Galloway MD May 07, 2017 01:20
--- NOTE | 2017-05-07 01:31 | HHI.HP ---
[facility] Service Family Medicine Primary Care Physician Rupal Guardado , Carmen Devries MD Admission Diagnosis Retain products Diagnoses: Chief Complaint: passed blot clot per vagina International Travel<30 Days: No Contact w/Intl Traveler<30days: No Known Affected Area: No History of Present Illness Ms Peng is a 31YO with one spontaneous miscarriage and no PMHx who presents today after passing a large blood clot per vagina almost three weeks after a normal . Pt is followed at [facility] and was delivered by Dr Devries 2 weeks and 3 days ago via no complications. Pt reports some continuing abdominal pain/discomfort since delivering the baby assessed as 2/10 on pain scale along with the normal cramping with . She also decribes shooting sharp abdominal pain with exertion that increases to 5/10 on pain scale. She has been taking Ibuprofen 800 mg PRN for pain with good results for pain control. Describes lochia as normal in amount and tapering down but continuous since . Today pt reports she passed a 3cm x 4cm dark blood clot per vagina and became concerned about the amount and size, stating she had not passed a clot before. Reports she changed pads about 3 times today. She has chronic low back pain s/p surgery for scoliosis 15 years ago which is still present. Denies fever, chills, sweats, CP, SOB, N/V/T or DVT pain. She plans to get tubes tied at 4 week point. Review of Systems Constitutional: DENIES: Fever, Chills, Dizziness, Night Sweats Endocrine: DENIES: Abnorml menstrual pattern Eyes: DENIES: Diplopia, Vision loss, Double Vision Ears, nose, mouth, throat: COMPLAINS OF: Running Nose (allergies), DENIES: Vertigo, Oral lesions, Throat pain, Hoarseness, Ear Pain, Sinus Pain Respiratory: DENIES: Cough, Wheezing, Shortness of breath Cardiovascular: DENIES: Chest pain, Palpitations, Syncope Gastrointestinal: COMPLAINS OF: Abdominal pain (left lower quadrant), DENIES: Black stools, Bloody stools, Constipation, Diarrhea, Nausea, Vomiting Genitourinary: COMPLAINS OF: Abnormal vaginal bleeding, Vaginal discharge, DENIES: Urinary frequency, Urgency, Dysuria Musculoskeletal: COMPLAINS OF: Back pain (LBP) Integumentary: DENIES: Pruritus, Rash, Nipple discharge Hematologic/lymphatic: DENIES: Bruising Neurologic: COMPLAINS OF: Headache, DENIES: Paresthesias, Seizures Psychiatric: DENIES: Anxiety, Depression Past Family Social History Past Medical History scoliosis Past Surgical History back surgery to correct scoliosis (2001) wisdom teeth removal Reported Medications Reported Meds & Active Scripts Active Methergine (Methylergonovine Maleate) 0.2 Mg Tab 0.2 Mg PO Q6HR Gnp Senna Plus 8.6-50 mg (Sennosides-Docusate Sodium) 8.6 Mg-50 Mg Tab 2 Tab PO Q12H PRN Ibuprofen 800 Mg Tab 800 Mg PO Q8H PRN Proair Hfa 8.5 GM Inh (Albuterol Sulfate) 90 Mcg/Act Aer 2 Puff INH Q4-6H PRN 108 mcg/actuation Equate allergy medication Reported Plus Iron 29-1 mg ( Vit-Iron Carbonyl) 1 Tab Tab 1 Tab PO DAILY Allergies: Coded Allergies: diphenhydramine (Unverified Allergy, Severe, SWELLIG, 05/06/17) pseudoephedrine (Unverified Allergy, Severe, SWELLING, 05/06/17) Active Ordered Medications Current Medications Medications (Trade) Dose Ordered Sig/Brayan Route Start Time Stop Time Status Last Admin (Methergine) 0.2 mg Q6HR PO 05/07/17 01:15 Family History Father - HTN, living Mother - thyroid problem, living Social History EtOH - no Tobacco - no Drugs - no Physical Exam Vital Signs Vital Signs Date Time Temp Pulse Resp B/P (MAP) Pulse Ox O2 Delivery O2 Flow Rate FiO2 05/06/17 23:30 98 21 05/06/17 19:37 98.1 79 16 115/72 (86) 99 Room Air Physical Exam GENERAL: This is a well-nourished, well-developed patient in no apparent distress sitting on the bed with her baby. SKIN: No rashes, ecchymoses or lesions. Cool and dry. HEAD: Atraumatic. Normocephalic. EYES: Pupils equal round and reactive. Extraocular motions intact. No scleral icterus. No injection or drainage. ENT: Nose without bleeding or drainage. Throat without erythema, tonsillar hypertrophy or exudate. Uvula midline. Airway patent. NECK: Trachea midline. No lymphadenopathy. Supple, nontender, no meningeal signs. CARDIOVASCULAR: Regular rate and rhythm without murmur, gallop, or rub. RESPIRATORY: Clear to auscultation. Breath sounds equal bilaterally. No wheezes , rales, or rhonchi. GASTROINTESTINAL: Abdomen soft, TTP LLQ > RLQ, nondistended. No hepato- splenomegaly, or palpable masses. No guarding. GENITOURINARY: External genitalia normal in appearance. Pelvic exam with adnexal tenderness L>R, uterus below umbilicus soft and mildly tender; speculum exam showing some old blood in the vaginal vault with normal appearing cervix with external os closed. MUSCULOSKELETAL: Extremities without clubbing, cyanosis, or edema. No joint tenderness, effusion, or edema noted. No calf tenderness. NEUROLOGICAL: Awake and alert. Cranial nerves II through XII intact. Motor and sensory grossly within normal limits. Five out of 5 muscle strength in all muscle groups. Normal speech. Laboratory Laboratory Tests Test 05/06/17 23:13 White Blood Count 5.9 Red Blood Count 5.10 Hemoglobin 13.1 Hematocrit 39.5 Mean Corpuscular Volume 77.4 Mean Corpuscular Hemoglobin 25.7 Mean Corpuscular Hemoglobin Concent 33.2 Red Cell Distribution Width 15.7 Platelet Count 283 Mean Platelet Volume 8.1 Neutrophils (%) (Auto) 47.5 Lymphocytes (%) (Auto) 40.9 Monocytes (%) (Auto) 5.3 Eosinophils (%) (Auto) 5.4 Basophils (%) (Auto) 0.9 Neutrophils # (Auto) 2.8 Lymphocytes # (Auto) 2.4 Monocytes # (Auto) 0.3 Eosinophils # (Auto) 0.3 Basophils # (Auto) 0.1 CBC Comment DIFF FINAL Differential Comment Prothrombin Time 10.0 Prothromb Time International Ratio 1.0 Blood Urea Nitrogen 14 Creatinine 0.68 Random Glucose 89 Total Protein 8.0 Albumin 3.6 Calcium Level 9.5 Alkaline Phosphatase 68 Aspartate Amino Transf (AST/SGOT) 14 Alanine Aminotransferase (ALT/SGPT) 21 Total Bilirubin 0.2 Sodium Level 139 Potassium Level 4.0 Chloride Level 104 Carbon Dioxide Level 28.3 Anion Gap 7 Estimat Glomerular Filtration Rate 102 Result Diagram: 05/06/17 2313 05/06/17 2313 Imaging Last Impressions Pelvis Ultrasound 05/06/17 0000 Signed Impressions: Service Date/Time: Saturday, May 06, 2017 21:32 - CONCLUSION: Some fluid remaining within the endometrial cavity raising the possibility of retained products of conception. Clinical correlation is recommended. Sourav Marie MD Septic Shock Reassessment Septic shock perfusion: reassessment completed Caprini VTE Risk Assessment Caprini VTE Risk Assessment: No/Low Risk (score <= 1) Caprini Risk Assessment Model Point Value = 1 Point Value = 2 Point Value = 3 Point Value = 5 Age 41-60 Minor surgery BMI > 25 kg/m2 Swollen legs Varicose veins or History of unexplained or recurrent spontaneous Oral contraceptives or hormone replacement Sepsis (< 1 month) Serious lung disease, including pneumonia (< 1 month) Abnormal pulmonary function Acute myocardial infarction Congestive heart failure (< 1 month) History of inflammatory bowel disease Medical patient at bed rest Age 61-74 Arthroscopic surgery Major open surgery (> 45 min) Laparoscopic surgery (> 45 min) Malignancy Confined to bed (> 72 hours) Immobilizing plaster cast Central venous access Age >= 75 History of VTE Family history of VTE Factor V Leiden Prothrombin [id number] Lupus anticoagulant Anticardiolipin antibodies Elevated serum homocysteine Heparin-induced thrombocytopenia Other congenital or acquired thrombophilia Stroke (< 1 month) Elective arthroplasty Hip, pelvis, or leg fracture Acute spinal cord injury (< 1 month) Prophylaxis Regimen Total Risk Factor Score Risk Level Prophylaxis Regimen 0-1 Low Early ambulation 2 Moderate Order ONE of the following: *Sequential Compression Device (SCD) *Heparin 5000 units SQ BID 3-4 Higher Order ONE of the following medications: *Heparin 5000 units SQ TID *Enoxaparin/Lovenox 40 mg SQ daily (WT < 150 kg, CrCl > 30 mL/min) *Enoxaparin/Lovenox 30 mg SQ daily (WT < 150 kg, CrCl > 10-29 mL/min) *Enoxaparin/Lovenox 30 mg SQ BID (WT < 150 kg, CrCl > 30 mL/min) AND/OR *Sequential Compression Device (SCD) 5 or more Highest Order ONE of the following medications: *Heparin 5000 units SQ TID (Preferred with Epidurals) *Enoxaparin/Lovenox 40 mg SQ daily (WT < 150 kg, CrCl > 30 mL/min) *Enoxaparin/Lovenox 30 mg SQ daily (WT < 150 kg, CrCl > 10-29 mL/min) *Enoxaparin/Lovenox 30 mg SQ BID (WT < 150 kg, CrCl > 30 mL/min) AND *Sequential Compression Device (SCD) Assessment and Plan Assessment and Plan 31YO with one spontaneous miscarriage presents with abdominal pain, continuous bleeding since delivery 2 weeks and 3 days ago, and passage of a 3cm x 4cm blood clot this morning. Pelvic US shows a small amount fo fluid and cannot r/o products of conception. Pt with some adnexal tenderness (L>R), but afebrile, hemodynamically stable, non-dizzy. Impression: Pelvic US (pt states US was not transvaginal as indicated on images) with small amount of fluid and no noted products of conception, but cannot be ruled out CBC wnl CMP wnl Coag study wnl PLAN: -[employer] Consulted and Dr Galloway discussed and saw pt with medicine team--appreciate recs -Methergine 0.2mg q6h PO x 8 doses -Continue Ibuprofen 800mg PO PRN for cramping, pain -Pt to f/u with transvaginal US on TuesdayMay 09 and was given referral -If TVUS shows retained products s/p methergine, will refer to [employer] outpt for D&C -Pt to return to ED if: fevers, brisk vaginal bleeding, uncontrolled pain -Plan discussed with pt and option of staying in observation offered, but pt wished to be discharged home and will adhere to plan as above -Dispo: pt discharged home in stable condition with AFVSS Code Status FULL Discussed Condition With Pt seen and dw Fahad Galloway (OB) and Dr Murali Valadez Pt dw Dr Brady Problem List: (1) bleeding ICD Codes: O72.1 - Other immediate hemorrhage (2) Retained products of conception without hemorrhage ICD Codes: O73.1 - Retained portions of placenta and membranes, without hemorrhage Status: Acute Problem Qualifiers (1) bleeding: Qualified Codes: O72.1 - Other immediate hemorrhage Farshad Perez MD R1 May 07, 2017 01:31
== END 2017-05-07 02:02 | disposition home or self-care (01) ==
LOC: NEPC 19:35 → NEDA 22:39
PROVIDERS: ADMIT Family Medicine; ATTEND Family Medicine
DX: O73.1 Retained portions of placenta and membranes, without hemorrhage (principal); O72.1 Other immediate postpartum hemorrhage; M54.5 Low back pain; G89.29 Other chronic pain; J45.909 Unspecified asthma, uncomplicated
CPT/HCPCS: 76856; 80053; 85025; 85610; 99285; G0378